=== PATIENT | female | born 1935 | race Caucasian/White ===

== ENCOUNTER 2019-05-06 04:29 | Inpatient (IN) | payer MEDICARE, OTHER ==
[~2019-05-06] VITALS: Ht 160 cm; Wt 50.3 kg
--- NOTE | 2019-05-06 04:42 | NUR ---
Patient brought in by rescue ambulance from home for fever. Per rescue patient's son called 911 due to patient having an elevated temp. Placed in bed 1A, gowned Attached to bedside monitor. Patient noted to be covered in feces, pt cleaned and linen changed. Awaiting MD byrnes.
[2019-05-06] MEDS ORDERED: DEXTROSE 50% 50 ML DISP.SYRIN IV ONE (05:00)
[2019-05-06] MEDS ORDERED: IV NORMAL SALINE 1000 ML BAG IV ONE (05:00)
[2019-05-06] MEDS ORDERED: DEXTROSE 50% 50 ML DISP.SYRIN ONE (05:02)
--- NOTE | 2019-05-06 05:03 | NUR ---
fingerstick BG noted at 50, Dr. Bailon made aware. New orders given and carried out.
[2019-05-06 05:10] LABS: BASOPHILS # (AUTO) 0.1 K/uL (0.0-8.0); BASOPHILS % (AUTO) 0.7 % (0.0-2.0); EOSINOPHILS # (AUTO) 0.1 K/uL (0.0-0.7); EOSINOPHILS % (AUTO) 0.6 % (0.0-7.0); HEMATOCRIT 32.9 % (31.2-41.9); HEMOGLOBIN 10.9 g/dL (10.9-14.3); LYMPHOCYTES % (AUTO) 19.7 % (20.5-51.5); MEAN CORPUSCULAR HEMOGLOBIN 28.7 uug (24.7-32.8); MEAN CORPUSCULAR HGB CONC 33 g/dL (32.3-35.6); MEAN CORPUSCULAR VOLUME 86.4 fL (75.5-95.3); MONOCYTES % (AUTO) 9.5 % (0.0-11.0); NEUTROPHILS # (AUTO) 7.1 K/uL (1.8-8.9); NEUTROPHILS % (AUTO) 69.5 % (38.5-71.5); PLATELET COUNT (AUTO) 470 K/uL (179-408); RED BLOOD CELL COUNT(AUTO) 3.81 MIL/uL (3.63-4.92); WHITE BLOOD COUNT (AUTO) 10.3 K/uL (3.8-11.8)
[2019-05-06 05:13] LABS: *CLARITY,URINE TURBID (CLEAR); *COLOR,URINE YELLOW (YELLOW)
[2019-05-06 05:14] LABS: *BILIRUBIN,URIN NEGATIVE (NEGATIVE); *BLOOD, URINE 3+ (NEGATIVE); *KETONES,URINE NEGATIVE (NEGATIVE); *UROBILINOGEN,URINE 0.2 E.U./dl (NORMAL); LEUKOCYTE ESTERASE ,URINE 3+ (NEGATIVE); NITRITE, URINE POSITIVE (NEGATIVE); UGLUCOSE NEGATIVE (NEGATIVE)
[2019-05-06 05:23] LABS: BACTERIA,URINE 3+ /HPF (NONE SEEN); CARBON DIOXIDE 19 mmol/L (21-32); CHLORIDE 109 mmol/L (98-107); CREATININE 1.3 mg/dL (0.6-1.3); GLUCOSE 59 mg/dL (74-106); MUCUS,URINE MANY /LPF (0-FEW); POTASSIUM 4.2 mmol/L (3.5-5.1); RBC,URINE TNTC /HPF (0-3); UREA NITROGEN, BLOOD 43 mg/dL (7-18); WBC,URINE TNTC /HPF (0-3)
--- NOTE | 2019-05-06 05:23 | NUR ---
Repeat fingerstick blood glucose 153, Dr. Bailon made aware.
[2019-05-06 05:29] LABS: ALANINE AMINOTRANSFERASE 16 U/L (14-59); ALKALINE PHOSPHATASE 82 U/L (50-136); ASPARTATE AMINOTRANSFERASE 15 U/L (15-37); BILIRUBIN,TOTAL 0.5 mg/dL (0.2-1.0); LIPASE 45 U/L (73-393); TOTAL PROTEIN, SERUM 9.1 g/dL (6.4-8.2)
[2019-05-06 05:30] LABS: BILIRUBIN,DIRECT < 0.1 mg/dL (0.0-0.2)
[2019-05-06] MEDS ORDERED: CEFTRIAXONE 2 G in IV DEXTROSE 5% 100 ML IV ONE (05:30)
[2019-05-06] MEDS ORDERED: CEFTRIAXONE /D5W 50ML IVPB **ER PYXIS IV ONE (05:44)
--- NOTE | 2019-05-06 06:07 | NUR ---
attempted to call report to telemetry, per unit, Jax will call back
[2019-05-06] MEDS ORDERED: HYDROCODONE/APAP 5-325MG TABLET PO PRN (06:15)
[2019-05-06] MEDS ORDERED: Z GUARD REMEDY PASTE 57 GM TUBE TOP PRN (06:15)
[2019-05-06] MEDS ORDERED: MAGNESIUM HYDROXIDE 30 ML LIQUID UDC PO PRN (06:15)
[2019-05-06] MEDS ORDERED: ONDANSETRON 4 MG/2 ML VIAL IV PRN (06:15)
--- NOTE | 2019-05-06 06:28 | NUR ---
SBAR report given to
--- NOTE | 2019-05-06 06:55 | NUR ---
rocephin ended at this time. Patient tolerated well, no adverse reactions noted.
--- NOTE | 2019-05-06 07:30 | NUR ---
RECEIVED PT FROM MARIAN RN. PT HAS JUST GOTTEN TO THE UNIT FROM ER NEW ADMIT. NO ACUTE DISTRESS NOTED. NO SOB NOTED. MACDONALD CATHETER FLOWING YELLOW URINE WITH LARGE AMOUNT OF SEDIMENT. PT SOMEWHAT COMBATIVE. BED LOCKED AND IN LOW POSITION. WILL CONTINUE TO MONITOR FOR SAFETY AND COMFORT.
[2019-05-06] MEDS ORDERED: OXYBUTYNIN CHLORIDE 5 MG TABLET PO SCH (09:00)
[2019-05-06] MEDS ORDERED: Medication Not On Formulary EA (Rosuvastatin Calcium (Crestor) 5 MG) PO SCH (09:00)
[2019-05-06] MEDS ORDERED: LOSARTAN POTASSIUM 50 MG TABLET PO SCH (09:00)
[2019-05-06] MEDS: METOPROLOL SUCCINATE XL 50 MG TAB.SR.24H PO SCH (09:14)
[2019-05-06] MEDS: AMLODIPINE 10 MG TABLET PO SCH (09:14)
[2019-05-06] MEDS: ASPIRIN 81 MG TAB.CHEW PO SCH (09:14)
[2019-05-06 11:46] VITALS: BP 121/59
--- NOTE | 2019-05-06 12:00 | NUR ---
PT'S DIET HAS BEEN UPDATED TO PUREED. NO ACUTE DISTRESS OR SOB NOTED. PT'S LOWER EXTREMITIES ARE CROSSED AND CONTRACTED. PT HAS AN ABRASION ON HER SACRAL AREA(MEPILEX APPLIED TO SACRAL AREA). ABRASION ON L ARM (MEPILEX APPLIED, PT KEEPS REMOVING) AND SCABS ON HER R FOOT. PICS TAKEN. PT HAS IV ACCESS ON L AC 20 GAUGE, FLUSHED AND PATENT COVERED. WILL CONTINUE TO MONITOR.
[2019-05-06 14:01] LABS: *CLARITY,URINE CLOUDY (CLEAR); *COLOR,URINE YELLOW (YELLOW)
[2019-05-06 14:02] LABS: *BILIRUBIN,URIN NEG (NEGATIVE); *BLOOD, URINE 1+ (NEGATIVE); *KETONES,URINE 2+ (NEGATIVE); *UROBILINOGEN,URINE 0.2 E.U./dl (NORMAL); PH,URINE 8.5 (5.0-8.0); UGLUCOSE NEG (NEGATIVE)
[2019-05-06 14:03] LABS: BACTERIA,URINE MODERATE /HPF (NONE SEEN); LEUKOCYTE ESTERASE ,URINE 2+ (NEGATIVE); NITRITE, URINE POSITIVE (NEGATIVE); WBC,URINE TNTC /HPF (0-3)
[2019-05-06 14:04] LABS: SQUAMOUS EPITHELIAL CELL,UR FEW /HPF (NONE SEEN)
[2019-05-06 15:03] LABS: *CREATININE,URINE 37.3 mg/dL (30-125)
[2019-05-06 16:00] VITALS: BP 124/66
[2019-05-06 16:12] LABS: *URINE TOTAL PROTEIN RANDOM > 1000.0 mg/dL (<150/24HR)
--- NOTE | 2019-05-06 18:00 | NUR ---
PT RESTING COMFORTABLY IN BED. NO ACUTE DISTRESS NOTED. URINE YELLOW WITH SEDIMENTS AWARE. 2 D ECHO ORDERED. PT CONSUMED 75%+ OF HER DINNER. WILL GIVE REPORT ACCORDINGLY.
[2019-05-06 20:05] VITALS: BP 144/57
[2019-05-06] MEDS ORDERED: ATORVASTATIN 10 MG TABLET PO SCH (21:00)
[2019-05-07] MEDS: ACETAMINOPHEN 325 MG TABLET PO PRN ×2 (03:57→20:47)
[2019-05-07 04:55] VITALS: BP 125/56
[2019-05-07] MEDS: CEFTRIAXONE 1 G in IV DEXTROSE 5% 50 ML IV SCH (05:20)
[2019-05-07 06:25] LABS: BASOPHILS % (AUTO) 0.5 % (0.0-2.0); EOSINOPHILS # (AUTO) 0.1 K/uL (0.0-0.7); HEMATOCRIT 26.9 % (31.2-41.9); HEMOGLOBIN 8.8 g/dL (10.9-14.3); LYMPHOCYTES # (AUTO) 1.6 K/uL (20.0-40.0); LYMPHOCYTES % (AUTO) 18.9 % (20.5-51.5); MEAN CORPUSCULAR HEMOGLOBIN 28.9 uug (24.7-32.8); MEAN CORPUSCULAR HGB CONC 33 g/dL (32.3-35.6); MEAN CORPUSCULAR VOLUME 88.1 fL (75.5-95.3); MONOCYTES # (AUTO) 0.7 K/uL (2.0-10.0); MONOCYTES % (AUTO) 8.2 % (0.0-11.0); NEUTROPHILS # (AUTO) 5.8 K/uL (1.8-8.9); NEUTROPHILS % (AUTO) 71.4 % (38.5-71.5); PLATELET COUNT (AUTO) 356 K/uL (179-408); RED BLOOD CELL COUNT(AUTO) 3.06 MIL/uL (3.63-4.92); WHITE BLOOD COUNT (AUTO) 8.2 K/uL (3.8-11.8)
--- NOTE | 2019-05-07 07:04 | NUR ---
Lab called with a critical glucose value of 403. Asked to redraw the sample. POC glucose test is 351. Will lily the MD for further orders. A second sample was collected and sent to the lab.
[2019-05-07 07:26] LABS: ALANINE AMINOTRANSFERASE 13 U/L (14-59); ALKALINE PHOSPHATASE 55 U/L (50-136); ASPARTATE AMINOTRANSFERASE 9 U/L (15-37); BILIRUBIN,TOTAL 0.3 mg/dL (0.2-1.0); CARBON DIOXIDE 20 mmol/L (21-32); CHLORIDE 113 mmol/L (98-107); CREATINE KINASE, TOTAL 53 U/L (26-192); CREATININE 1.1 mg/dL (0.6-1.3); MAGNESIUM 2.1 mg/dL (1.8-2.4); PHOSPHOROUS 3.1 mg/dL (2.5-4.9); POTASSIUM 4.2 mmol/L (3.5-5.1); TOTAL PROTEIN, SERUM 7.4 g/dL (6.4-8.2); UREA NITROGEN, BLOOD 35 mg/dL (7-18)
[2019-05-07 07:33] LABS: GLUCOSE 411 mg/dL (74-106)
[2019-05-07 07:47] LABS: CHOLESTEROL 95 mg/dL (<200); HDL CHOLESTEROL 45 mg/dL (40-60)
--- NOTE | 2019-05-07 07:56 | NUR ---
Second sample shows glucose of 411. Dr León was paged again, waiting for response. Endorsed to day shift RN
--- NOTE | 2019-05-07 08:00 | NUR ---
RECEIVED PATIENT IN BED AWAKE CONFUSED AND DISORIENTED ALL NEEDS ANTICIPATED AND SATISFIED SHE IS ON ROOM AIR WITH NO SHORTNESS OF BREATH AT THIS TIME PATIENT HAS HYPERGLYCEMIA PER NOC RN AWAITING FOR DR MARIE TO PLACE IN ORDERS.TURNED AND REPOSITIONED WITH HEELS FLOATED MADE COMFORTABLE AND WILL CONTINUE TO OBSERVE.
[2019-05-07] MEDS ORDERED: DEXTROSE 50% 50 ML DISP.SYRIN IV PRN (09:00)
[2019-05-07] MEDS: BLOOD SUGAR DIAGNOSTIC 1 EACH STRIP VI SCH ×4 (09:00→20:47)
[2019-05-07] MEDS: ASPIRIN 81 MG TAB.CHEW PO SCH (09:04)
[2019-05-07] MEDS: METOPROLOL SUCCINATE XL 50 MG TAB.SR.24H PO SCH (09:04)
[2019-05-07] MEDS: AMLODIPINE 10 MG TABLET PO SCH (09:04)
--- NOTE | 2019-05-07 09:10 | NUR ---
DUE MEDICATIONS INCLUDING INSULIN GIVEN PER SLIDING SCALE PATIENT ALREADY ATE HER BREAKFAST WITH GOOD APPETITE ECHO PARTIALLY DONE PATIENT BECAME RESISTANT TOWARDS THE END OF THE TEST MADE COMFORTABLE ALERT TO SELF BUR INCOHERENT AT THIS TIME
[2019-05-07] MEDS: INSULIN REGULAR, HUMAN 300 UNIT/3 ML VIAL SQ PRN ×4 (09:11→20:50)
[2019-05-07 11:13] LABS: IRON, SERUM 10 ug/dL (50-175)
[2019-05-07] MEDS: LINAGLIPTIN 5 MG TABLET PO SCH (11:25)
[2019-05-07 12:00] VITALS: BP 135/54
[2019-05-07 13:27] LABS: TRIGLYCERIDES 60 MG/DL (30-150)
--- NOTE | 2019-05-07 14:44 | NUR ---
PATIENT SEEN AND EXAMINED BY FRANCIS RIVERA CHEMICALS FERMENTATION OPERATOR WITH NEW ORDERS AND NOTED.
[2019-05-07 16:17] VITALS: BP 113/50
[2019-05-07 18:24] LABS: *OCCULT BLOOD STOOL NEGATIVE (NEGATIVE)
[2019-05-07 19:42] VITALS: BP 112/39
--- NOTE | 2019-05-07 19:53 | NUR ---
RECEIVED PT IN BED, SLOUCHED OVER, REPOSITIONED. APPEARS TO BE STABLE AND COMFORTABLE, NO SIGNS OF PAIN OR DISCOMFORT. UNABLE TO VERBALIZE NEEDS. MACDONALD CATHETER DRAINING, TO DARK YELLOW/CLOUDY URINE. WILL ANTICIPATE NEEDS AND MONITOR FREQUENTLY.
[2019-05-07] MEDS: Z GUARD REMEDY PASTE 57 GM TUBE TOP SCH (20:47)
--- NOTE | 2019-05-08 03:44 | NUR ---
pt sleeping well at this time, slept intermittently throughout night. Turned and repositioned every 2 hours for comfort and skin breakdown prevention. Kept monitored hourly. Will continue to monitor.
[2019-05-08 04:42] VITALS: BP 143/61
[2019-05-08] MEDS: CEFTRIAXONE 1 G in IV DEXTROSE 5% 50 ML IV SCH (06:03)
[2019-05-08] MEDS: BLOOD SUGAR DIAGNOSTIC 1 EACH STRIP VI SCH ×4 (06:50→21:06)
[2019-05-08 07:35] LABS: EOSINOPHILS # (AUTO) 0.1 K/uL (0.0-0.7); LYMPHOCYTES # (AUTO) 1.3 K/uL (20.0-40.0); MONOCYTES # (AUTO) 0.4 K/uL (2.0-10.0); NEUTROPHILS # (AUTO) 5.3 K/uL (1.8-8.9); WHITE BLOOD COUNT (AUTO) 7.2 K/uL (3.8-11.8)
[2019-05-08 07:52] LABS: BASOPHILS % (AUTO) 0.6 % (0.0-2.0); EOSINOPHILS % (AUTO) 1.8 % (0.0-7.0); LYMPHOCYTES % (AUTO) 18.6 % (20.5-51.5); MEAN CORPUSCULAR HEMOGLOBIN 28.2 uug (24.7-32.8); MEAN CORPUSCULAR HGB CONC 32 g/dL (32.3-35.6); MEAN CORPUSCULAR VOLUME 87.6 fL (75.5-95.3); PLATELET COUNT (AUTO) 382 K/uL (179-408); RED BLOOD CELL COUNT(AUTO) 3.54 MIL/uL (3.63-4.92)
[2019-05-08 07:53] LABS: BILIRUBIN,TOTAL 0.3 mg/dL (0.2-1.0); MAGNESIUM 1.7 mg/dL (1.8-2.4); PHOSPHOROUS 3.3 mg/dL (2.5-4.9); POTASSIUM 4.7 mmol/L (3.5-5.1)
[2019-05-08] MEDS: INSULIN REGULAR, HUMAN 300 UNIT/3 ML VIAL SQ PRN ×4 (08:03→21:07)
[2019-05-08] MEDS: Z GUARD REMEDY PASTE 57 GM TUBE TOP SCH ×2 (09:00→21:03)
[2019-05-08] MEDS: ASPIRIN 81 MG TAB.CHEW PO SCH (09:07)
[2019-05-08] MEDS: AMLODIPINE 10 MG TABLET PO SCH (09:08)
[2019-05-08] MEDS: METOPROLOL SUCCINATE XL 50 MG TAB.SR.24H PO SCH (09:10)
[2019-05-08] MEDS: LINAGLIPTIN 5 MG TABLET PO SCH (09:10)
[2019-05-08] MEDS ORDERED: METOPROLOL SUCCINATE XL 50 MG TAB.SR.24H PO SCH (09:29)
[2019-05-08] MEDS: GLIMEPIRIDE 2 MG TABLET PO SCH ×2 (10:27→17:17)
[2019-05-08] MEDS: METOPROLOL TARTRATE 25 MG TABLET PO SCH ×2 (10:28→21:01)
[2019-05-08 11:30] VITALS: BP 132/52
--- NOTE | 2019-05-08 14:10 | NUR ---
WOUND CARE CONSULT: PT PRESENTS WITH SACRAL INTACT DEEP TISSUE INJURY WITH SURROUNDING SCARRING WHICH EXTENDS TO BILATERAL BUTTOCKS, PRESENT ON ADMISSION. RECOMMEND SURGICAL CONSULT. DR RAMIRES NOTIFIED. PT IS COMBATIVE AT TIMES AND IS INCONTINENT OF STOOL. PT TENDS TO CROSS HER LEGS. RECOMMENDATIONS MADE FOR SKIN PROTECTION. DISCUSSED WITH NURSING STAFF. WILL SEE PRN. FLOWERS IN AGREEMENT WITH PLAN OF CARE. Addendum: 05/08/19 at 1412 by RADHA MCKEON RN Amended: Links added.
[2019-05-08] MEDS: MAGNESIUM SULFATE/D5W 100 ML IV SCH ×2 (15:17→17:27)
[2019-05-08 15:33] VITALS: BP 119/47
[2019-05-08 20:38] VITALS: BP 122/59
[2019-05-08] MEDS: CEphaleXIN 500 MG CAPSULE PO SCH (21:00)
--- NOTE | 2019-05-08 23:13 | NUR ---
hands off report received from Roxann. Pt in no acute distress, safety and comfort provided. will continue to monitor.
[2019-05-09 05:46] VITALS: BP 125/60
[2019-05-09] MEDS: CEphaleXIN 500 MG CAPSULE PO SCH ×2 (06:13→13:23)
--- NOTE | 2019-05-09 06:29 | NUR ---
PT SLEPT INTERMITTENTLY. PT IN NO ACUTE DISTRESS. PRESCRIBED MEDICATION GIVEN AND PT TOLERATED IT WELL. PT HAD 1 BOWEL MOVEMENT. SAFETY AND COMFORT PROVIDED. ALL NEEDS ARE MET. WILL ENDORSE TO INCOMING NURSE FOR CONTINUITY OF CARE.
[2019-05-09] MEDS: BLOOD SUGAR DIAGNOSTIC 1 EACH STRIP VI SCH ×3 (06:32→16:30)
[2019-05-09 07:07] LABS: CREATININE 0.8 mg/dL (0.6-1.3); MAGNESIUM 2.2 mg/dL (1.8-2.4); PHOSPHOROUS 3.4 mg/dL (2.5-4.9); POTASSIUM 4.7 mmol/L (3.5-5.1)
[2019-05-09 07:26] LABS: BASOPHILS # (AUTO) 0.1 K/uL (0.0-8.0); BASOPHILS % (AUTO) 0.8 % (0.0-2.0); EOSINOPHILS # (AUTO) 0.2 K/uL (0.0-0.7); HEMATOCRIT 28.5 % (31.2-41.9); HEMOGLOBIN 9.5 g/dL (10.9-14.3); LYMPHOCYTES % (AUTO) 22.8 % (20.5-51.5); MEAN CORPUSCULAR HEMOGLOBIN 28.9 uug (24.7-32.8); MEAN CORPUSCULAR HGB CONC 33 g/dL (32.3-35.6); MEAN CORPUSCULAR VOLUME 86.8 fL (75.5-95.3); MONOCYTES # (AUTO) 0.4 K/uL (2.0-10.0); MONOCYTES % (AUTO) 5.1 % (0.0-11.0); NEUTROPHILS # (AUTO) 6.1 K/uL (1.8-8.9); NEUTROPHILS % (AUTO) 69.3 % (38.5-71.5); PLATELET COUNT (AUTO) 427 K/uL (179-408); RED BLOOD CELL COUNT(AUTO) 3.29 MIL/uL (3.63-4.92); WHITE BLOOD COUNT (AUTO) 8.8 K/uL (3.8-11.8)
[2019-05-09] MEDS: Z GUARD REMEDY PASTE 57 GM TUBE TOP SCH (09:00)
[2019-05-09] MEDS: GLIMEPIRIDE 2 MG TABLET PO SCH ×2 (09:43→18:06)
[2019-05-09] MEDS: METOPROLOL TARTRATE 25 MG TABLET PO SCH (09:44)
[2019-05-09] MEDS: ASPIRIN 81 MG TAB.CHEW PO SCH (09:44)
[2019-05-09] MEDS: AMLODIPINE 10 MG TABLET PO SCH (09:44)
[2019-05-09] MEDS: LINAGLIPTIN 5 MG TABLET PO SCH (09:45)
[2019-05-09] MEDS: INSULIN REGULAR, HUMAN 300 UNIT/3 ML VIAL SQ PRN ×2 (09:48→11:43)
[2019-05-09 11:31] VITALS: BP 128/60
[2019-05-09 12:06] LABS: A/G RATIO 0.6 (0.7-1.7); ALBUMIN 2.5 g/dL (2.9-4.4); ALPHA-1-GLOBULIN 0.3 g/dL (0.0-0.4); BETA GLOBULIN 0.9 g/dL (0.7-1.3); GAMMA GLOBULIN 1.9 g/dL (0.4-1.8); GLOBULIN, TOTAL 4.2 g/dL (2.2-3.9); M-SPIKE Not Observed g/dL (Not Observed)
[2019-05-09 15:36] VITALS: BP 129/51
--- NOTE | 2019-05-09 18:55 | NUR ---
Patient bathed prior to discharge. IV d/c'd. Waiting ambulance for transport home
== END 2019-05-09 19:20 | disposition home health service (06) | DRG 871 ==
LOC: ER 04:39 → TELE3 06:16 → MEDSURG3 11:55
PROVIDERS: ADMIT Family Medicine; ATTEND Internal Medicine
DX: A41.9 Sepsis, unspecified organism (principal); N17.0 Acute kidney failure with tubular necrosis; G92 Toxic encephalopathy; N12 Tubulo-interstitial nephritis, not specified as acute or chronic; D68.59 Other primary thrombophilia; E44.0 Moderate protein-calorie malnutrition; N32.81 Overactive bladder; E78.5 Hyperlipidemia, unspecified; E11.649 Type 2 diabetes mellitus with hypoglycemia without coma; D63.8 Anemia in other chronic diseases classified elsewhere; B96.4 Proteus (mirabilis) (morganii) as the cause of diseases classified elsewhere; E86.0 Dehydration; I25.10 Atherosclerotic heart disease of native coronary artery without angina pectoris; K59.00 Constipation, unspecified; N31.9 Neuromuscular dysfunction of bladder, unspecified; E11.69 Type 2 diabetes mellitus with other specified complication; E11.65 Type 2 diabetes mellitus with hyperglycemia; Z79.84 Long term (current) use of oral hypoglycemic drugs; Z74.09 Other reduced mobility; Z79.82 Long term (current) use of aspirin; Z90.49 Acquired absence of other specified parts of digestive tract; Z98.42 Cataract extraction status, left eye; Z98.41 Cataract extraction status, right eye; I15.2 Hypertension secondary to endocrine disorders; F03.90 Unspecified dementia, unspecified severity, without behavioral disturbance, psychotic disturbance, mood disturbance, and anxiety; M19.90 Unspecified osteoarthritis, unspecified site; M54.30 Sciatica, unspecified side; I35.8 Other nonrheumatic aortic valve disorders
CPT/HCPCS: 36415; 70030-TC; 71045; 82378; 83550; 83605; 83690; 83735; 83970; 84100; 84155; 84156; 84165; 84300; 85025; 85730; 87040; 87077; 87086; 87400; 93005; 93307; A4663; C1758; G0378; J0696; J1815; J3475; J3490; J7030; J7040; J7060

== ENCOUNTER 2019-11-06 17:14 | Inpatient (IN) | payer MEDICARE, OTHER ==
[~2019-11-06] VITALS: Ht 160 cm; Wt 44.5 kg
[~2019-11-06 17:14] MED LIST: AMLO10TA4 PO; ASPI81TA31 PO; CEPH500C2 PO; GLIM2TAB PO; LINA5TAB PO; LOSA100T3 PO; METO50TA7 PO; ROSU5TAB PO
[2019-11-06] MEDS ORDERED: [UNRECOGNIZED DRUG - OTHER] SQ (18:03)
[2019-11-06] MEDS ORDERED: OLME1TAB22 PO (18:03)
[2019-11-06] MEDS ORDERED: VALS1TAB8 PO (18:03)
[2019-11-06] MEDS ORDERED: INSU100V7 SQ (18:03)
[2019-11-06] MEDS ORDERED: BENA20TA9 PO (18:03)
[2019-11-06] MEDS ORDERED: METF-440 PO (18:03)
[2019-11-06] MEDS ORDERED: SIMV10TA98 PO (18:03)
[2019-11-06 18:36] LABS: CREATININE 1.3 mg/dL (0.6-1.3); POTASSIUM 4.7 mmol/L (3.5-5.1)
[2019-11-06 18:45] LABS: BILIRUBIN,DIRECT 0.1 mg/dL (0.0-0.2); BILIRUBIN,TOTAL 0.2 mg/dL (0.2-1.0); TOTAL PROTEIN, SERUM 7.9 g/dL (6.4-8.2)
[2019-11-06 19:53] LABS: BASOPHILS # (AUTO) 0.1 K/uL (0.0-8.0); BASOPHILS % (AUTO) 0.9 % (0.0-2.0); EOSINOPHILS # (AUTO) 0.1 K/uL (0.0-0.7); EOSINOPHILS % (AUTO) 1.3 % (0.0-7.0); HEMOGLOBIN 11.9 g/dL (10.9-14.3); LYMPHOCYTES # (AUTO) 1.3 K/uL (20.0-40.0); LYMPHOCYTES % (AUTO) 22.8 % (20.5-51.5); MEAN CORPUSCULAR HEMOGLOBIN 29.1 uug (24.7-32.8); MEAN CORPUSCULAR HGB CONC 33 g/dL (32.3-35.6); MEAN CORPUSCULAR VOLUME 87.8 fL (75.5-95.3); MONOCYTES # (AUTO) 0.6 K/uL (2.0-10.0); MONOCYTES % (AUTO) 11.2 % (0.0-11.0); NEUTROPHILS # (AUTO) 3.6 K/uL (1.8-8.9); NEUTROPHILS % (AUTO) 63.8 % (38.5-71.5); PLATELET COUNT (AUTO) 304 K/uL (179-408); WHITE BLOOD COUNT (AUTO) 5.6 K/uL (3.8-11.8)
[2019-11-06 19:57] LABS: *BILIRUBIN,URIN NEGATIVE (NEGATIVE); *BLOOD, URINE 1+ (NEGATIVE); *CLARITY,URINE CLOUDY (CLEAR); *COLOR,URINE YELLOW (YELLOW); *KETONES,URINE NEGATIVE (NEGATIVE); *UROBILINOGEN,URINE 0.2 E.U./dl (NORMAL); LEUKOCYTE ESTERASE ,URINE 3+ (NEGATIVE); NITRITE, URINE POSITIVE (NEGATIVE); PH,URINE 8.5 (5.0-8.0); UGLUCOSE NEGATIVE (NEGATIVE)
[2019-11-06] MEDS ORDERED: CEFTRIAXONE 1 G in IV DEXTROSE 5% 50 ML IV ONE (20:45)
[2019-11-06] MEDS ORDERED: CEFTRIAXONE /D5W 50ML IVPB **ER PYXIS IV ONE (20:50)
[2019-11-06] MEDS ORDERED: ACETAMINOPHEN 325 MG TABLET PO PRN (21:45)
[2019-11-06] MEDS ORDERED: ONDANSETRON 4 MG/2 ML VIAL IV PRN (21:45)
[2019-11-06] MEDS ORDERED: HYDROCODONE/APAP 5-325MG TABLET PO PRN (21:45)
[2019-11-06 22:27] LABS: BACTERIA,URINE MANY /HPF (NONE SEEN); SQUAMOUS EPITHELIAL CELL,UR FEW /HPF (NONE SEEN); TRIPLE PHOSPHATE CRYSTAL,UR MANY /HPF (NONE SEEN); WBC,URINE 20-50 /HPF (0-3)
[2019-11-07 01:15] VITALS: BP 146/71
[2019-11-07] MEDS: IV 1/2NS 1000 ML 1,000 ML IV PRN (04:37)
[2019-11-07 04:38] VITALS: BP 139/73
[2019-11-07 04:42] VITALS: BP 133/60
[2019-11-07 08:40] LABS: BILIRUBIN,TOTAL 0.3 mg/dL (0.2-1.0); CREATININE 1.2 mg/dL (0.6-1.3); MAGNESIUM 1.5 mg/dL (1.8-2.4); PHOSPHOROUS 3.5 mg/dL (2.5-4.9); POTASSIUM 4.3 mmol/L (3.5-5.1); TOTAL PROTEIN, SERUM 7.6 g/dL (6.4-8.2)
[2019-11-07 08:49] LABS: BASOPHILS % (AUTO) 0.6 % (0.0-2.0); EOSINOPHILS % (AUTO) 0.6 % (0.0-7.0); HEMATOCRIT 35.5 % (31.2-41.9); HEMOGLOBIN 11.6 g/dL (10.9-14.3); LYMPHOCYTES % (AUTO) 28.7 % (20.5-51.5); MEAN CORPUSCULAR HEMOGLOBIN 29.1 uug (24.7-32.8); MEAN CORPUSCULAR HGB CONC 33 g/dL (32.3-35.6); MEAN CORPUSCULAR VOLUME 89.3 fL (75.5-95.3); MONOCYTES # (AUTO) 1.1 K/uL (2.0-10.0); MONOCYTES % (AUTO) 15.4 % (0.0-11.0); NEUTROPHILS # (AUTO) 3.8 K/uL (1.8-8.9); NEUTROPHILS % (AUTO) 54.7 % (38.5-71.5); PLATELET COUNT (AUTO) 267 K/uL (179-408); RED BLOOD CELL COUNT(AUTO) 3.98 MIL/uL (3.63-4.92)
[2019-11-07] MEDS ORDERED: CEFTRIAXONE 1 G in IV DEXTROSE 5% 50 ML IV SCH ×2 (09:00→21:00)
[2019-11-07 09:09] LABS: THYROID STIMULATING HORMONE 0.787 mIU/mL (0.358-3.740)
[2019-11-07] MEDS: METFORMIN HCL 500 MG TABLET PO SCH ×2 (09:19→17:06)
[2019-11-07] MEDS: ASPIRIN 81 MG TAB.CHEW PO SCH (09:19)
[2019-11-07] MEDS: PANTOPRAZOLE SODIUM 40 MG TABLET.DR PO SCH (09:19)
[2019-11-07] MEDS: BENAZEPRIL HCL 20 MG TABLET PO SCH (09:22)
[2019-11-07] MEDS: MAGNESIUM SULFATE/D5W 100 ML IV SCH ×2 (10:34→11:23)
[2019-11-07 11:43] VITALS: BP 130/62
[2019-11-07] MEDS: CIPROFLOXACIN IV 200 MG in PREMIXED 1 EACH IV SCH ×2 (11:51→20:32)
[2019-11-07 12:02] LABS: LYMPHOCYTES % (MANUAL) 29 % (20-40); MONOCYTES % (MANUAL) 17 % (2-10); NEUTROPHILS % (MANUAL) 54 % (42-75)
[2019-11-07] MEDS: METRONIDAZOLE 500 MG/NS 100ML 500 MG in PREMIXED 1 EACH IV SCH ×2 (14:23→22:54)
[2019-11-07 15:27] VITALS: BP 122/54
[2019-11-07] MEDS: GLUCERNA SHAKE VANILLA 237 ML CAN PO SCH (17:06)
[2019-11-07 20:03] VITALS: BP 98/38
[2019-11-07] MEDS: SIMVASTATIN 10 MG TABLET PO SCH (20:32)
[2019-11-08] MEDS: IV 1/2NS 1000 ML 1,000 ML IV PRN (00:53)
[2019-11-08 04:09] VITALS: BP 116/57
[2019-11-08] MEDS: METRONIDAZOLE 500 MG/NS 100ML 500 MG in PREMIXED 1 EACH IV SCH ×3 (05:09→22:05)
[2019-11-08] MEDS: PANTOPRAZOLE SODIUM 40 MG TABLET.DR PO SCH (06:26)
[2019-11-08] MEDS: ASPIRIN 81 MG TAB.CHEW PO SCH (08:26)
[2019-11-08] MEDS: GLUCERNA SHAKE VANILLA 237 ML CAN PO SCH ×3 (08:26→17:28)
[2019-11-08] MEDS: METFORMIN HCL 500 MG TABLET PO SCH ×2 (08:26→17:26)
[2019-11-08] MEDS: BENAZEPRIL HCL 20 MG TABLET PO SCH (08:29)
[2019-11-08] MEDS: CIPROFLOXACIN IV 200 MG in PREMIXED 1 EACH IV SCH ×2 (08:29→20:03)
[2019-11-08 11:13] VITALS: BP 110/45
[2019-11-08 11:26] LABS: BASOPHILS % (AUTO) 0.6 % (0.0-2.0); EOSINOPHILS % (AUTO) 1.4 % (0.0-7.0); HEMATOCRIT 31.5 % (31.2-41.9); HEMOGLOBIN 10.3 g/dL (10.9-14.3); LYMPHOCYTES # (AUTO) 1.3 K/uL (20.0-40.0); LYMPHOCYTES % (AUTO) 35.8 % (20.5-51.5); MEAN CORPUSCULAR HEMOGLOBIN 28.8 uug (24.7-32.8); MEAN CORPUSCULAR HGB CONC 33 g/dL (32.3-35.6); MEAN CORPUSCULAR VOLUME 87.9 fL (75.5-95.3); MONOCYTES # (AUTO) 0.5 K/uL (2.0-10.0); MONOCYTES % (AUTO) 12.8 % (0.0-11.0); NEUTROPHILS # (AUTO) 1.8 K/uL (1.8-8.9); NEUTROPHILS % (AUTO) 49.4 % (38.5-71.5); PLATELET COUNT (AUTO) 261 K/uL (179-408); RED BLOOD CELL COUNT(AUTO) 3.59 MIL/uL (3.63-4.92); WHITE BLOOD COUNT (AUTO) 3.6 K/uL (3.8-11.8)
[2019-11-08 11:33] LABS: MAGNESIUM 1.7 mg/dL (1.8-2.4); PHOSPHOROUS 3.5 mg/dL (2.5-4.9); POTASSIUM 3.8 mmol/L (3.5-5.1)
[2019-11-08] MEDS: ENOXAPARIN SODIUM 30 MG/0.3 ML DISP.SYRIN SUBCUT SCH (12:22)
[2019-11-08] MEDS ORDERED: LORAZEPAM 0.5 MG TABLET PO PRN (12:45)
[2019-11-08] MEDS ORDERED: QUETIAPINE FUMARATE 25 MG TABLET PO PRN (12:45)
[2019-11-08 16:13] VITALS: BP 126/49
[2019-11-08] MEDS: SIMVASTATIN 10 MG TABLET PO SCH (20:03)
[2019-11-08 20:23] VITALS: BP 119/68
[2019-11-09] MEDS: IV 1/2NS 1000 ML 1,000 ML IV PRN (00:43)
[2019-11-09 04:03] VITALS: BP 133/59
[2019-11-09] MEDS: METRONIDAZOLE 500 MG/NS 100ML 500 MG in PREMIXED 1 EACH IV SCH ×2 (05:07→13:11)
[2019-11-09] MEDS: PANTOPRAZOLE SODIUM 40 MG TABLET.DR PO SCH (06:03)
[2019-11-09 07:04] LABS: BASOPHILS % (AUTO) 0.3 % (0.0-2.0); EOSINOPHILS # (AUTO) 0.1 K/uL (0.0-0.7); EOSINOPHILS % (AUTO) 2.1 % (0.0-7.0); HEMATOCRIT 29.1 % (31.2-41.9); HEMOGLOBIN 9.7 g/dL (10.9-14.3); LYMPHOCYTES # (AUTO) 1.1 K/uL (20.0-40.0); LYMPHOCYTES % (AUTO) 27.3 % (20.5-51.5); MEAN CORPUSCULAR HEMOGLOBIN 28.9 uug (24.7-32.8); MEAN CORPUSCULAR HGB CONC 34 g/dL (32.3-35.6); MEAN CORPUSCULAR VOLUME 86.4 fL (75.5-95.3); MONOCYTES # (AUTO) 0.4 K/uL (2.0-10.0); MONOCYTES % (AUTO) 9.4 % (0.0-11.0); NEUTROPHILS # (AUTO) 2.4 K/uL (1.8-8.9); NEUTROPHILS % (AUTO) 60.9 % (38.5-71.5); PLATELET COUNT (AUTO) 247 K/uL (179-408); RED BLOOD CELL COUNT(AUTO) 3.36 MIL/uL (3.63-4.92); WHITE BLOOD COUNT (AUTO) 3.9 K/uL (3.8-11.8)
[2019-11-09 07:11] LABS: MAGNESIUM 1.5 mg/dL (1.8-2.4); PHOSPHOROUS 2.7 mg/dL (2.5-4.9); POTASSIUM 4.1 mmol/L (3.5-5.1)
[2019-11-09] MEDS: METFORMIN HCL 500 MG TABLET PO SCH ×2 (08:00→16:03)
[2019-11-09] MEDS: ASPIRIN 81 MG TAB.CHEW PO SCH (08:00)
[2019-11-09] MEDS: BENAZEPRIL HCL 20 MG TABLET PO SCH (08:00)
[2019-11-09] MEDS: ENOXAPARIN SODIUM 30 MG/0.3 ML DISP.SYRIN SUBCUT SCH (08:01)
[2019-11-09] MEDS: CIPROFLOXACIN IV 200 MG in PREMIXED 1 EACH IV SCH (08:02)
[2019-11-09] MEDS: GLUCERNA SHAKE VANILLA 237 ML CAN PO SCH ×3 (08:17→16:04)
[2019-11-09] MEDS: MAGNESIUM SULFATE/D5W 100 ML IV SCH ×2 (09:50→10:22)
[2019-11-09 11:22] VITALS: BP 98/40
[2019-11-09 14:59] VITALS: BP 122/55
[2019-11-09 15:16] VITALS: BP 129/55
[2019-11-09] MEDS ORDERED: METR-147 PO (15:26)
[2019-11-09] MEDS ORDERED: CIPR250T4 PO (15:26)
[2019-11-09] MEDS ORDERED: CIPROFLOXACIN HCL 250 MG TABLET PO SCH (21:00)
[2019-11-09] MEDS ORDERED: METRONIDAZOLE 500 MG TABLET PO SCH (22:00)
== END 2019-11-09 16:40 | disposition home health service (06) | DRG 871 ==
LOC: ER 17:16 → MEDSURG3 23:50
PROVIDERS: ADMIT Internal Medicine; ATTEND Registered Nurse
DX: A41.9 Sepsis, unspecified organism (principal); G92 Toxic encephalopathy; N17.0 Acute kidney failure with tubular necrosis; D68.69 Other thrombophilia; F03.91 Unspecified dementia, unspecified severity, with behavioral disturbance; N13.6 Pyonephrosis; Z68.1 Body mass index [BMI] 19.9 or less, adult; Z79.4 Long term (current) use of insulin; E78.5 Hyperlipidemia, unspecified; I70.0 Atherosclerosis of aorta; D64.9 Anemia, unspecified; R62.7 Adult failure to thrive; M19.90 Unspecified osteoarthritis, unspecified site; I11.9 Hypertensive heart disease without heart failure; K52.89 Other specified noninfective gastroenteritis and colitis; Z79.84 Long term (current) use of oral hypoglycemic drugs; K59.09 Other constipation; N28.1 Cyst of kidney, acquired; N32.0 Bladder-neck obstruction; E11.65 Type 2 diabetes mellitus with hyperglycemia; M54.30 Sciatica, unspecified side; Z79.82 Long term (current) use of aspirin; Z87.440 Personal history of urinary (tract) infections; Z90.49 Acquired absence of other specified parts of digestive tract; R40.2363 Coma scale, best motor response, obeys commands, at hospital admission; R40.2143 Coma scale, eyes open, spontaneous, at hospital admission; R40.2243 Coma scale, best verbal response, confused conversation, at hospital admission
CPT/HCPCS: 36415; 70030-TC; 70450; 71045; 83605; 83735; 84100; 84443; 85025; 87040; 87086; 93005; A4663; G0378; J0696; J1650; J3475; J3490; J7060

== ENCOUNTER 2019-11-11 17:53 | Inpatient (IN) | payer MEDICARE, OTHER ==
[~2019-11-11] VITALS: Ht 157.5 cm; Wt 52.6 kg
[~2019-11-11 17:53] MED LIST changes: -AMLO10TA4 PO; +BENA20TA9 PO; -CEPH500C2 PO; +CIPR250T4 PO; -GLIM2TAB PO; +INSU100V7 SQ; -LOSA100T3 PO; +METF-440 PO; -METO50TA7 PO; +METR-147 PO; -ROSU5TAB PO; +SIMV10TA98 PO; +[UNRECOGNIZED DRUG - OTHER] SQ
--- NOTE | 2019-11-11 18:04 | NUR ---
Per yarn salvager from [facility] unit# [id number], patient's son is coming with list of home medicine.
[2019-11-11] MEDS ORDERED: GLYB2.5T4 PO (18:38)
[2019-11-11] MEDS ORDERED: OXYB5TAB16 PO (18:38)
[2019-11-11] MEDS ORDERED: LOSA100T31 PO (18:38)
[2019-11-11] MEDS ORDERED: ROSU5TAB13 PO (18:39)
[2019-11-11] MEDS ORDERED: AMLO10TA7 PO (18:39)
[2019-11-11] MEDS ORDERED: METO-358 (18:43)
[2019-11-11] MEDS ORDERED: IV NORMAL SALINE 1000 ML BAG IV ONE (18:45)
[2019-11-11 19:10] LABS: EOSINOPHILS # (AUTO) 0.1 K/uL (0.0-0.7); EOSINOPHILS % (AUTO) 3.8 % (0.0-7.0); HEMOGLOBIN 10.4 g/dL (10.9-14.3); LYMPHOCYTES # (AUTO) 1.3 K/uL (20.0-40.0); LYMPHOCYTES % (AUTO) 41.5 % (20.5-51.5); MEAN CORPUSCULAR HEMOGLOBIN 28.4 uug (24.7-32.8); MEAN CORPUSCULAR HGB CONC 33 g/dL (32.3-35.6); MEAN CORPUSCULAR VOLUME 87.2 fL (75.5-95.3); MONOCYTES # (AUTO) 0.2 K/uL (2.0-10.0); MONOCYTES % (AUTO) 8.1 % (0.0-11.0); NEUTROPHILS # (AUTO) 1.4 K/uL (1.8-8.9); NEUTROPHILS % (AUTO) 45.6 % (38.5-71.5); PLATELET COUNT (AUTO) 267 K/uL (179-408); RED BLOOD CELL COUNT(AUTO) 3.67 MIL/uL (3.63-4.92)
--- NOTE | 2019-11-11 19:11 | NUR ---
Full SBAR report given to ОЛЬГА López.
[2019-11-11 19:16] LABS: CREATININE 0.8 mg/dL (0.6-1.3); POTASSIUM 3.9 mmol/L (3.5-5.1)
[2019-11-11 19:29] LABS: BILIRUBIN,DIRECT 0.1 mg/dL (0.0-0.2); BILIRUBIN,TOTAL 0.3 mg/dL (0.2-1.0); TOTAL PROTEIN, SERUM 6.6 g/dL (6.4-8.2)
[2019-11-11 19:45] LABS: *BILIRUBIN,URIN NEGATIVE (NEGATIVE); *BLOOD, URINE 2+ (NEGATIVE); *CLARITY,URINE CLOUDY (CLEAR); *COLOR,URINE YELLOW (YELLOW); *KETONES,URINE TRACE (NEGATIVE); *UROBILINOGEN,URINE 0.2 E.U./dl (NORMAL); LEUKOCYTE ESTERASE ,URINE 3+ (NEGATIVE); NITRITE, URINE POSITIVE (NEGATIVE); PH,URINE 5.5 (5.0-8.0); UGLUCOSE NEGATIVE (NEGATIVE)
--- NOTE | 2019-11-11 19:46 | NUR ---
urine sent to lab at this time, [address] in right AC at this time, Normal saline IV fluids inprogress at this time
[2019-11-11 20:29] LABS: BACTERIA,URINE MANY /HPF (NONE SEEN); RBC,URINE 20-50 /HPF (0-3); SQUAMOUS EPITHELIAL CELL,UR FEW /HPF (NONE SEEN); WBC,URINE 20-50 /HPF (0-3)
[2019-11-11] MEDS ORDERED: CEFTRIAXONE /D5W 50ML IVPB **ER PYXIS IV ONE (20:30)
[2019-11-11] MEDS ORDERED: CEFTRIAXONE 2 G in IV DEXTROSE 5% 100 ML IV ONE (20:30)
[2019-11-11] MEDS ORDERED: ACETAMINOPHEN ES 500 MG TABLET PO ONE (20:30)
[2019-11-11] MEDS ORDERED: ACETAMINOPHEN ES 500 MG TABLET ONE (20:30)
[2019-11-11] MEDS ORDERED: MAGNESIUM HYDROXIDE 30 ML LIQUID UDC PO PRN (20:45)
[2019-11-11] MEDS ORDERED: ONDANSETRON 4 MG/2 ML VIAL IV PRN (20:45)
[2019-11-11] MEDS ORDERED: Z GUARD REMEDY PASTE 57 GM TUBE TOP PRN (20:45)
[2019-11-11] MEDS ORDERED: ACETAMINOPHEN 325 MG TABLET PO PRN (20:45)
--- NOTE | 2019-11-11 21:05 | NUR ---
Covid swab sent to lab at this time
--- NOTE | 2019-11-11 21:52 | NUR ---
civil technician noted in room at this time
[2019-11-11] MEDS ORDERED: PIPERACILLIN SODIUM/TAZOBACTAM 3.375 G in IV DEXTROSE 5% 50 ML IV SCH (22:00)
--- NOTE | 2019-11-11 23:03 | NUR ---
900 ml of Tea colored urine emptied from infante bag at this time, patient had samll BM at this time
--- NOTE | 2019-11-12 00:14 | NUR ---
Pt. admitted to [facility] , under care of Dr. Martinez Belongs List completed sent with patient, report given to Mani
[2019-11-12 00:19] VITALS: BP 156/66
--- NOTE | 2019-11-12 00:20 | NUR ---
Received patient awake but confused. Patient shows no signs or symptoms of distress at this time. No fever noted at this time. Grubbs draining to gravity and is patent. Safety measures in place. Admitting orders received and will be carried out. Will continue to monitor patient.
[2019-11-12] MEDS ORDERED: PIPERACILLIN SODIUM/TAZOBACTAM 3.375 G in IV DEXTROSE 5% 50 ML IV ONE (00:30)
[2019-11-12] MEDS: IV NS 1000 ML 1,000 ML IV PRN ×2 (00:31→20:56)
[2019-11-12] MEDS ORDERED: PIPERACILLIN/TAZOBACTAM/D5W 50 ML IV ONE (00:54)
[2019-11-12 05:36] VITALS: BP 130/60
[2019-11-12] MEDS: PANTOPRAZOLE SODIUM 40 MG TABLET.DR PO SCH (06:22)
[2019-11-12] MEDS: PIPERACILLIN SODIUM/TAZOBACTAM 3.37 G in IV DEXTROSE 5% 100 ML IV SCH ×3 (06:48→21:01)
[2019-11-12] MEDS: METFORMIN HCL 500 MG TABLET PO SCH ×2 (07:56→16:28)
[2019-11-12] MEDS: METRONIDAZOLE 500 MG TABLET PO SCH ×2 (07:56→16:28)
[2019-11-12] MEDS: glyBURIDE 5 MG TABLET PO SCH (07:56)
[2019-11-12] MEDS: ENOXAPARIN SODIUM 40 MG/0.4 ML DISP.SYRIN SQ SCH (07:57)
[2019-11-12] MEDS: LOSARTAN POTASSIUM 50 MG TABLET PO SCH (07:58)
[2019-11-12] MEDS: ASPIRIN 81 MG TAB.CHEW PO SCH (07:58)
[2019-11-12 09:58] LABS: BASOPHILS % (AUTO) 0.8 % (0.0-2.0); EOSINOPHILS # (AUTO) 0.2 K/uL (0.0-0.7); EOSINOPHILS % (AUTO) 4.8 % (0.0-7.0); HEMATOCRIT 34.3 % (31.2-41.9); LYMPHOCYTES # (AUTO) 1.5 K/uL (20.0-40.0); LYMPHOCYTES % (AUTO) 46.6 % (20.5-51.5); MEAN CORPUSCULAR HEMOGLOBIN 28.3 uug (24.7-32.8); MEAN CORPUSCULAR HGB CONC 32 g/dL (32.3-35.6); MEAN CORPUSCULAR VOLUME 87.9 fL (75.5-95.3); MONOCYTES # (AUTO) 0.4 K/uL (2.0-10.0); MONOCYTES % (AUTO) 13.3 % (0.0-11.0); NEUTROPHILS # (AUTO) 1.1 K/uL (1.8-8.9); NEUTROPHILS % (AUTO) 34.5 % (38.5-71.5); PLATELET COUNT (AUTO) 240 K/uL (179-408); WHITE BLOOD COUNT (AUTO) 3.3 K/uL (3.8-11.8)
[2019-11-12 10:22] LABS: CREATININE 0.9 mg/dL (0.6-1.3); MAGNESIUM 1.5 mg/dL (1.8-2.4); PHOSPHOROUS 3.4 mg/dL (2.5-4.9); POTASSIUM 3.5 mmol/L (3.5-5.1)
[2019-11-12] MEDS: OXYBUTYNIN CHLORIDE 5 MG TABLET PO SCH (10:31)
[2019-11-12 11:04] LABS: THYROID STIMULATING HORMONE 1.86 mIU/mL (0.358-3.740)
[2019-11-12 11:50] VITALS: BP 117/51
[2019-11-12 15:15] VITALS: BP 140/68
--- NOTE | 2019-11-12 15:39 | NUR ---
Pt alert to name. Pt has not teeth changed texture to puree. Implemented skin management, fall and aspiration precautions. Grubbs catheter intact draining cloudy urine. IF on r ac intact. IVF infusing as ordered. Call light is within reach.
--- NOTE | 2019-11-12 17:57 | NUR ---
Urine specimen sent to lab. Pt is in no acute distress. Call light is within reach.
--- NOTE | 2019-11-12 19:45 | NUR ---
Received patient asleep. Patient shows no signs or symptoms of distress at this time. Vital signs stable. No fever noted at this time. Safety measures in place. Will continue to monitor patient.
[2019-11-12 20:05] VITALS: BP 136/59
[2019-11-12] MEDS: ATORVASTATIN 10 MG TABLET PO SCH (20:52)
[2019-11-13] MEDS: PIPERACILLIN SODIUM/TAZOBACTAM 3.37 G in IV DEXTROSE 5% 100 ML IV SCH ×2 (05:02→13:50)
[2019-11-13 05:55] VITALS: BP 158/60
[2019-11-13] MEDS: PANTOPRAZOLE SODIUM 40 MG TABLET.DR PO SCH (06:17)
--- NOTE | 2019-11-13 06:28 | NUR ---
Patient shows no signs or symptoms of distress at this time. Vital signs stable. No fever noted at this time. Safety measures in place. Patient to be endorsed to day shift nurse in stable condition.
--- NOTE | 2019-11-13 08:00 | NUR ---
Pt in bed asleep, arousable to name and touch, confused. On RA with no SOB or distress noted at this time. IV on right AC 22g flushed and patent. Grubbs catheter in place draining slightly cloudy yellow urine. Bed locked in lowest position with siderails 3x up, call light within reach.
[2019-11-13] MEDS: METFORMIN HCL 500 MG TABLET PO SCH ×2 (09:40→16:46)
[2019-11-13] MEDS: OXYBUTYNIN CHLORIDE 5 MG TABLET PO SCH (09:40)
[2019-11-13] MEDS: glyBURIDE 5 MG TABLET PO SCH (09:42)
[2019-11-13] MEDS: ASPIRIN 81 MG TAB.CHEW PO SCH (09:45)
[2019-11-13] MEDS: LOSARTAN POTASSIUM 50 MG TABLET PO SCH (09:51)
[2019-11-13] MEDS: ENOXAPARIN SODIUM 40 MG/0.4 ML DISP.SYRIN SQ SCH (09:55)
[2019-11-13 11:43] VITALS: BP 150/43
--- NOTE | 2019-11-13 12:00 | NUR ---
Called lab and informed Rony to redraw poncho's lab since 3x unsuccessful attempts this morning
[2019-11-13 16:00] VITALS: BP 144/72
[2019-11-13 16:14] LABS: BASOPHILS % (AUTO) 0.7 % (0.0-2.0); EOSINOPHILS # (AUTO) 0.1 K/uL (0.0-0.7); EOSINOPHILS % (AUTO) 3.4 % (0.0-7.0); HEMOGLOBIN 10.1 g/dL (10.9-14.3); LYMPHOCYTES # (AUTO) 1.5 K/uL (20.0-40.0); LYMPHOCYTES % (AUTO) 43.8 % (20.5-51.5); MEAN CORPUSCULAR HEMOGLOBIN 28.6 uug (24.7-32.8); MEAN CORPUSCULAR HGB CONC 33 g/dL (32.3-35.6); MEAN CORPUSCULAR VOLUME 87.5 fL (75.5-95.3); MONOCYTES # (AUTO) 0.2 K/uL (2.0-10.0); MONOCYTES % (AUTO) 6.5 % (0.0-11.0); NEUTROPHILS # (AUTO) 1.5 K/uL (1.8-8.9); NEUTROPHILS % (AUTO) 45.6 % (38.5-71.5); PLATELET COUNT (AUTO) 267 K/uL (179-408); RED BLOOD CELL COUNT(AUTO) 3.54 MIL/uL (3.63-4.92); WHITE BLOOD COUNT (AUTO) 3.3 K/uL (3.8-11.8)
[2019-11-13 16:30] LABS: CREATININE 0.9 mg/dL (0.6-1.3); MAGNESIUM 1.3 mg/dL (1.8-2.4); PHOSPHOROUS 2.5 mg/dL (2.5-4.9)
[2019-11-13] MEDS ORDERED: DEXTROSE 50% 50 ML DISP.SYRIN IV PRN (17:30)
[2019-11-13] MEDS ORDERED: MAGNESIUM SULFATE/D5W 100 ML IV SCH (17:30)
[2019-11-13] MEDS ORDERED: MEROPENEM 0.5 G in IV NORMAL SALINE 50 ML IV SCH (18:00)
[2019-11-13] MEDS: MAGNESIUM SULFATE/D5W 100 ML IV SCH ×2 (18:32→19:55)
[2019-11-13] MEDS: IV NS 1000 ML 1,000 ML IV PRN (19:00)
--- NOTE | 2019-11-13 19:30 | NUR ---
Received patient in bed. No signs or symptoms of acute distress noted at this time. Patient is on RA no signs or symptoms of SOB or pain at this time. Patient is confused. IV patent and intact infusing fluids per order. Grubbs in place draining via gravity. Bed is low and locked. Bed alarm on and safety measures in place. Will continue to monitor.
[2019-11-13 20:21] VITALS: BP 138/64
[2019-11-13] MEDS: ATORVASTATIN 10 MG TABLET PO SCH (20:39)
[2019-11-13] MEDS: BLOOD SUGAR DIAGNOSTIC 1 EACH STRIP VI SCH (20:40)
[2019-11-13] MEDS: INSULIN REGULAR, HUMAN 300 UNIT/3 ML VIAL SQ PRN (20:42)
[2019-11-13] MEDS: MEROPENEM 0.5 G in IV NORMAL SALINE 50 ML IV SCH ×2 (22:07→23:26)
[2019-11-14 05:20] VITALS: BP 150/62
[2019-11-14] MEDS: BLOOD SUGAR DIAGNOSTIC 1 EACH STRIP VI SCH ×4 (06:39→21:10)
[2019-11-14] MEDS: PANTOPRAZOLE SODIUM 40 MG TABLET.DR PO SCH (06:39)
--- NOTE | 2019-11-14 06:41 | NUR ---
Patient shows no signs or symptoms of acute distress at this time. No fever noted. Patient slept through the night. IV right forearm patent and intact. Safety measures in place and will endorse to oncoming nurse.
[2019-11-14] MEDS ORDERED: MEROPENEM 0.5 G in IV NORMAL SALINE 50 ML IV SCH (07:00)
[2019-11-14 08:00] VITALS: BP 153/60
[2019-11-14] MEDS: ASPIRIN 81 MG TAB.CHEW PO SCH (08:00)
[2019-11-14] MEDS: METFORMIN HCL 500 MG TABLET PO SCH ×2 (08:00→17:06)
--- NOTE | 2019-11-14 08:00 | NUR ---
Pt in bed awake, confused, on RA with no SOB or distress noted at this time. IV on right FA 22g running NS @ 100cc. Legs are contracted. Grubbs catheter in place. Bed locked in lowest position with siderails 3x up. Call light within reach
[2019-11-14] MEDS: LOSARTAN POTASSIUM 50 MG TABLET PO SCH (08:01)
[2019-11-14] MEDS: glyBURIDE 5 MG TABLET PO SCH (08:01)
[2019-11-14] MEDS: ENOXAPARIN SODIUM 40 MG/0.4 ML DISP.SYRIN SQ SCH (08:03)
[2019-11-14] MEDS: OXYBUTYNIN CHLORIDE 5 MG TABLET PO SCH (08:07)
[2019-11-14] MEDS: IV NS 1000 ML 1,000 ML IV PRN ×2 (11:13→21:35)
[2019-11-14 11:37] VITALS: BP 127/86
[2019-11-14 12:02] LABS: MAGNESIUM 1.4 mg/dL (1.8-2.4); PHOSPHOROUS 2.6 mg/dL (2.5-4.9); POTASSIUM 3.9 mmol/L (3.5-5.1)
[2019-11-14 12:07] LABS: BASOPHILS % (AUTO) 0.4 % (0.0-2.0); EOSINOPHILS # (AUTO) 0.1 K/uL (0.0-0.7); EOSINOPHILS % (AUTO) 2.3 % (0.0-7.0); HEMATOCRIT 31.4 % (31.2-41.9); HEMOGLOBIN 10.3 g/dL (10.9-14.3); LYMPHOCYTES # (AUTO) 1.3 K/uL (20.0-40.0); LYMPHOCYTES % (AUTO) 29.7 % (20.5-51.5); MEAN CORPUSCULAR HEMOGLOBIN 28.8 uug (24.7-32.8); MEAN CORPUSCULAR HGB CONC 33 g/dL (32.3-35.6); MEAN CORPUSCULAR VOLUME 88.2 fL (75.5-95.3); MONOCYTES # (AUTO) 0.2 K/uL (2.0-10.0); MONOCYTES % (AUTO) 5.5 % (0.0-11.0); NEUTROPHILS # (AUTO) 2.6 K/uL (1.8-8.9); NEUTROPHILS % (AUTO) 62.1 % (38.5-71.5); PLATELET COUNT (AUTO) 235 K/uL (179-408); RED BLOOD CELL COUNT(AUTO) 3.56 MIL/uL (3.63-4.92); WHITE BLOOD COUNT (AUTO) 4.2 K/uL (3.8-11.8)
[2019-11-14] MEDS: INSULIN REGULAR, HUMAN 300 UNIT/3 ML VIAL SQ PRN ×3 (12:11→21:14)
[2019-11-14 16:00] VITALS: BP 122/51
[2019-11-14 20:06] VITALS: BP 142/118
[2019-11-14] MEDS: ATORVASTATIN 10 MG TABLET PO SCH (21:01)
[2019-11-14 21:06] VITALS: BP 139/60
[2019-11-14] MEDS: MEROPENEM 0.5 G in IV NORMAL SALINE 50 ML IV SCH (23:11)
[2019-11-15] MEDS: MEROPENEM 0.5 G in IV NORMAL SALINE 50 ML IV SCH ×2 (06:05→14:58)
[2019-11-15] MEDS: PANTOPRAZOLE SODIUM 40 MG TABLET.DR PO SCH (06:05)
[2019-11-15] MEDS: BLOOD SUGAR DIAGNOSTIC 1 EACH STRIP VI SCH ×3 (06:35→16:30)
[2019-11-15 06:46] VITALS: BP 150/62
--- NOTE | 2019-11-15 06:54 | NUR ---
Pt slept intermittently throughout the night. No signs of distress. vital signs stable. safety precaution in place. Call light within reach
[2019-11-15 07:06] LABS: CREATININE 0.9 mg/dL (0.6-1.3)
--- NOTE | 2019-11-15 08:00 | NUR ---
received pt. resting in bed alert oriented to self. pt. appears in no distress. pt. appears to be resting comfortably. IV in R forearm 22 gauge intact patent running prescribed fluid. pt. on room air saturating well. pt. has tendency to scratch herself on occasion. Grubbs catheter in place draining tea color urine. safety measures in place. call light within reach. will continue to monitor pt.
[2019-11-15] MEDS: METFORMIN HCL 500 MG TABLET PO SCH ×2 (08:07→18:07)
[2019-11-15] MEDS: OXYBUTYNIN CHLORIDE 5 MG TABLET PO SCH (08:07)
[2019-11-15] MEDS: glyBURIDE 5 MG TABLET PO SCH (08:07)
[2019-11-15] MEDS: ASPIRIN 81 MG TAB.CHEW PO SCH (08:19)
[2019-11-15] MEDS: LOSARTAN POTASSIUM 50 MG TABLET PO SCH (08:19)
[2019-11-15] MEDS: ENOXAPARIN SODIUM 40 MG/0.4 ML DISP.SYRIN SQ SCH (08:21)
--- NOTE | 2019-11-15 11:10 | NUR ---
WOUND CARE CONSULT: PT SEEN FOR INCONTINENCE ASSOCIATED SKIN DAMAGE OVER PREVIOUS SACRAL SCARRING. PT NOTED TO BE SCRATCHING AT HER SKIN. PT IS COMBATIVE AT TIMES. RECOMMENDATIONS MADE FOR SKIN PROTECTION AND SKIN CARE. DISCUSSED WITH NURSING STAFF AND INSTRUMENT TECHNICIAN APPRENTICE. MD IN AGREEMENT WITH PLAN OF CARE. Addendum: 11/15/19 at 1113 by RADHA MCKEON RN Amended: Links added.
[2019-11-15 11:40] VITALS: BP 141/57
[2019-11-15] MEDS: INSULIN REGULAR, HUMAN 300 UNIT/3 ML VIAL SQ PRN ×2 (12:27→18:10)
[2019-11-15 16:10] VITALS: BP 141/71
--- NOTE | 2019-11-15 19:20 | NUR ---
pt. discharged. pt. picked up by ambulance. son is aware of pt.'s arrival. midline in R UA inserted and wrapped with kerlix. pt. leaving with infante catheter in from admission. all discharge paperwork with pt. signed by 2 RNs. Pt. has no belongings.
== END 2019-11-15 18:45 | disposition home health service (06) | DRG 689 ==
LOC: ER 17:55 → MEDSURG3 23:39
PROVIDERS: ADMIT Registered Nurse; ATTEND Nurse Practitioner Acute Care
DX: N39.0 Urinary tract infection, site not specified (principal); G92 Toxic encephalopathy; N17.0 Acute kidney failure with tubular necrosis; E44.0 Moderate protein-calorie malnutrition; Z16.12 Extended spectrum beta lactamase (ESBL) resistance; M62.82 Rhabdomyolysis; D68.69 Other thrombophilia; B96.20 Unspecified Escherichia coli [E. coli] as the cause of diseases classified elsewhere; Z74.09 Other reduced mobility; E86.0 Dehydration; D63.8 Anemia in other chronic diseases classified elsewhere; E78.5 Hyperlipidemia, unspecified; F03.90 Unspecified dementia, unspecified severity, without behavioral disturbance, psychotic disturbance, mood disturbance, and anxiety; I10 Essential (primary) hypertension; Z79.82 Long term (current) use of aspirin; Z87.440 Personal history of urinary (tract) infections; R62.7 Adult failure to thrive; D72.819 Decreased white blood cell count, unspecified; E11.65 Type 2 diabetes mellitus with hyperglycemia; M19.90 Unspecified osteoarthritis, unspecified site; M54.30 Sciatica, unspecified side; N31.9 Neuromuscular dysfunction of bladder, unspecified; Z79.84 Long term (current) use of oral hypoglycemic drugs
CPT/HCPCS: 36415; 70030-TC; 71045; 76770; 83605; 83735; 84100; 84443; 85025; 85730; 87040; 87077; 87086; 93005; A9150; G0378; J0696; J1650; J1815; J2185; J2543; J3475; J3490; J7030; J7060

== ENCOUNTER 2020-05-10 18:12 | Inpatient (IN) | payer MEDICARE, OTHER ==
[~2020-05-10] VITALS: Ht 154.9 cm; Wt 52.2 kg
[~2020-05-10 18:12] MED LIST changes: +AMLO10TA59 PO; -BENA20TA9 PO; -CIPR250T4 PO; +GLYB2.5T4 PO; -LINA5TAB PO; +LOSA100T31 PO; +METO-358; -METR-147 PO; +OXYB5TAB16 PO; +ROSU5TAB13 PO; -SIMV10TA98 PO; -[UNRECOGNIZED DRUG - OTHER] SQ
[2020-05-10] MEDS ORDERED: METO-357 PO (18:24)
[2020-05-10] MEDS ORDERED: METF-440 PO (18:24)
[2020-05-10] MEDS ORDERED: LANTUS INSULIN (18:24)
[2020-05-10] MEDS ORDERED: CRAN500T PO (18:24)
[2020-05-10] MEDS ORDERED: MACROBID (18:24)
[2020-05-10] MEDS ORDERED: [UNRECOGNIZED DRUG - OTHER] (18:24)
[2020-05-10] MEDS ORDERED: diphenhydrAMINE 50 MG/1 ML VIAL IM ONE (18:30)
[2020-05-10] MEDS ORDERED: IV NORMAL SALINE 500 ML BAG IV ONE (18:30)
[2020-05-10] MEDS ORDERED: HALOPERIDOL LACTATE 5 MG/1 ML VIAL IM ONE (18:30)
[2020-05-10] MEDS ORDERED: HALOPERIDOL LACTATE 5 MG/1 ML VIAL ONE (18:39)
[2020-05-10] MEDS ORDERED: diphenhydrAMINE 50 MG/1 ML VIAL ONE (18:39)
--- NOTE | 2020-05-10 19:10 | NUR ---
laboratory worker in room to draw labs
[2020-05-10 19:23] LABS: BASOPHILS % (AUTO) 0.3 % (0.0-2.0); EOSINOPHILS % (AUTO) 0.4 % (0.0-7.0); HEMATOCRIT 35.2 % (31.2-41.9); HEMOGLOBIN 11.6 g/dL (10.9-14.3); LYMPHOCYTES # (AUTO) 0.4 K/uL (20.0-40.0); LYMPHOCYTES % (AUTO) 3.2 % (20.5-51.5); MEAN CORPUSCULAR HEMOGLOBIN 28.3 uug (24.7-32.8); MEAN CORPUSCULAR HGB CONC 33 g/dL (32.3-35.6); MEAN CORPUSCULAR VOLUME 85.9 fL (75.5-95.3); MONOCYTES # (AUTO) 0.2 K/uL (2.0-10.0); MONOCYTES % (AUTO) 1.3 % (0.0-11.0); NEUTROPHILS # (AUTO) 10.7 K/uL (1.8-8.9); NEUTROPHILS % (AUTO) 94.8 % (38.5-71.5); PLATELET COUNT (AUTO) 332 K/uL (179-408); WHITE BLOOD COUNT (AUTO) 11.3 K/uL (3.8-11.8)
[2020-05-10] MEDS ORDERED: CEFTRIAXONE 1 G in IV DEXTROSE 5% 50 ML IV ONE (19:30)
[2020-05-10 19:34] LABS: ALANINE AMINOTRANSFERASE 32 U/L (14-59); ALKALINE PHOSPHATASE 119 U/L (50-136); ASPARTATE AMINOTRANSFERASE 41 U/L (15-37); BILIRUBIN,DIRECT 0.2 mg/dL (0.0-0.2); BILIRUBIN,TOTAL 0.5 mg/dL (0.2-1.0); CARBON DIOXIDE 21 mmol/L (21-32); CHLORIDE 101 mmol/L (98-107); CREATININE 1.3 mg/dL (0.6-1.3); GLUCOSE 284 mg/dL (74-106); POTASSIUM 4.3 mmol/L (3.5-5.1); TOTAL PROTEIN, SERUM 8.4 g/dL (6.4-8.2); UREA NITROGEN, BLOOD 33 mg/dL (7-18)
[2020-05-10 19:36] LABS: ACETAMINOPHEN < 2.0 ug/mL (10-30)
[2020-05-10 19:37] LABS: ETHANOL < 3 MG/DL (0-0)
[2020-05-10 19:58] LABS: THYROID STIMULATING HORMONE 2.996 mIU/mL (0.358-3.740)
[2020-05-10 20:41] LABS: *BILIRUBIN,URIN NEGATIVE (NEGATIVE); *BLOOD, URINE 1+ (NEGATIVE); *CLARITY,URINE CLOUDY (CLEAR); *COLOR,URINE DARK YELLOW (YELLOW); *KETONES,URINE TRACE (NEGATIVE); *UROBILINOGEN,URINE 0.2 E.U./dl (NORMAL); LEUKOCYTE ESTERASE ,URINE 2+ (NEGATIVE); NITRITE, URINE NEGATIVE (NEGATIVE); PH,URINE 5.5 (5.0-8.0); UGLUCOSE NEGATIVE (NEGATIVE)
--- NOTE | 2020-05-10 21:50 | NUR ---
Dr. Cee on panel call with Smith Ritchie DNP. Patient accepted for admission to [facility], diagnosis: altered mental status.
[2020-05-10] MEDS ORDERED: CEFTRIAXONE /D5W 50ML IVPB **ER PYXIS IV ONE (21:53)
--- NOTE | 2020-05-10 22:26 | NUR ---
LEGAL SUPPORT ASSISTANT PINKY REPORTS PATIENT IS COVID -
[2020-05-10] MEDS ORDERED: DEXTROSE 50% 50 ML DISP.SYRIN IV PRN (22:30)
[2020-05-10] MEDS ORDERED: MORPHINE SULFATE 2 MG/1 ML DISP.SYRIN IV PRN (22:30)
[2020-05-10] MEDS ORDERED: Z GUARD REMEDY PASTE 57 GM TUBE TOP PRN (22:30)
[2020-05-10] MEDS ORDERED: ONDANSETRON 4 MG/2 ML VIAL IV PRN (22:30)
[2020-05-10] MEDS ORDERED: ACETAMINOPHEN 325 MG TABLET PO PRN (22:30)
[2020-05-10] MEDS ORDERED: MAGNESIUM HYDROXIDE 30 ML LIQUID UDC PO PRN (22:30)
[2020-05-10] MEDS ORDERED: HYDROCODONE/APAP 5-325MG TABLET PO PRN (22:30)
--- NOTE | 2020-05-10 22:30 | NUR ---
Called med/surg tele floor to give report, patient is assigned to room 314. Pending call back.
--- NOTE | 2020-05-10 23:00 | NUR ---
Patient is sleeping in room, eyes closed. No acute distress is noted at this time.
[2020-05-10 23:32] LABS: BACTERIA,URINE MANY /HPF (NONE SEEN); RBC,URINE 20-50 /HPF (0-3); SQUAMOUS EPITHELIAL CELL,UR MODERATE /HPF (NONE SEEN); WBC,URINE TNTC /HPF (0-3)
--- NOTE | 2020-05-10 23:40 | NUR ---
Report given to ОЛЬГА Dumont.
--- NOTE | 2020-05-10 23:55 | NUR ---
Pt. admitted to tele 314, under care of SUKUMAR Hardin. Belongs List completed, transported with all original paperwork.
[2020-05-11] VITALS: BP 118/54
--- NOTE | 2020-05-11 00:30 | NUR ---
Received pt from ED d/t AMS. Pt is unable to follow commands. No s/s of acute distress noted at this time. Pt is on tele, NSR, 89. V/S stable on room air. Grubbs is intact and draining well. PIV on LFA 22G is intact with 1/2 NS running at 50ml/hr. Bilateral soft restraints in place, to prevent pt from removing lines. Personal belongings checked and with the patient. Safety measures in place. Bed low and locked in position, will continue with the plan of care
[2020-05-11] MEDS: IV 1/2NS 1000 ML 1,000 ML IV PRN (01:18)
[2020-05-11 04:00] VITALS: BP 119/95
[2020-05-11 06:15] LABS: BASOPHILS # (AUTO) 0.1 K/uL (0.0-8.0); BASOPHILS % (AUTO) 0.4 % (0.0-2.0); EOSINOPHILS # (AUTO) 0.1 K/uL (0.0-0.7); EOSINOPHILS % (AUTO) 0.8 % (0.0-7.0); HEMATOCRIT 29.5 % (31.2-41.9); HEMOGLOBIN 9.6 g/dL (10.9-14.3); LYMPHOCYTES % (AUTO) 6.4 % (20.5-51.5); MEAN CORPUSCULAR HEMOGLOBIN 28.1 uug (24.7-32.8); MEAN CORPUSCULAR HGB CONC 33 g/dL (32.3-35.6); MONOCYTES # (AUTO) 0.7 K/uL (2.0-10.0); MONOCYTES % (AUTO) 4.6 % (0.0-11.0); NEUTROPHILS # (AUTO) 13.7 K/uL (1.8-8.9); NEUTROPHILS % (AUTO) 87.8 % (38.5-71.5); PLATELET COUNT (AUTO) 289 K/uL (179-408); RED BLOOD CELL COUNT(AUTO) 3.43 MIL/uL (3.63-4.92); WHITE BLOOD COUNT (AUTO) 15.6 K/uL (3.8-11.8)
--- NOTE | 2020-05-11 06:16 | NUR ---
Pt stable. Pt still non-verbal and cannot follow simple commands. On RA, no s/s of acute distress. NSR,89 on tele monitor. Isolation, fall and aspiration precaution maintained. Will endorse to oncoming nurse.
[2020-05-11 06:18] LABS: BILIRUBIN,TOTAL 0.5 mg/dL (0.2-1.0); MAGNESIUM 1.6 mg/dL (1.8-2.4); PHOSPHOROUS 3.4 mg/dL (2.5-4.9); POTASSIUM 3.9 mmol/L (3.5-5.1)
[2020-05-11] MEDS: BLOOD SUGAR DIAGNOSTIC 1 EACH STRIP VI SCH ×4 (06:34→21:09)
[2020-05-11 06:44] LABS: THYROID STIMULATING HORMONE 2.768 mIU/mL (0.358-3.740)
--- NOTE | 2020-05-11 08:00 | NUR ---
Awake, confused, trying to bite. With bilateral soft wrist restraints, monitored per protocol. IVF infusing.
[2020-05-11] MEDS ORDERED: CRANBERRY FRUIT 500 MG PO SCH (09:00)
[2020-05-11] MEDS ORDERED: ENOXAPARIN SODIUM 30 MG/0.3 ML DISP.SYRIN SUBCUT SCH (09:00)
[2020-05-11] MEDS: MAGNESIUM SULFATE/D5W 100 ML IV SCH ×2 (09:17→10:50)
[2020-05-11] MEDS: METFORMIN HCL 500 MG TABLET PO SCH ×3 (09:17→16:36)
[2020-05-11] MEDS: ASPIRIN 81 MG TAB.CHEW PO SCH (09:17)
[2020-05-11] MEDS: LOSARTAN POTASSIUM 50 MG TABLET PO SCH (09:18)
[2020-05-11] MEDS: AMLODIPINE 10 MG TABLET PO SCH (09:18)
[2020-05-11] MEDS: METOPROLOL SUCCINATE XL 50 MG TAB.SR.24H PO SCH (09:19)
[2020-05-11] MEDS: ENOXAPARIN SODIUM 40 MG/0.4 ML DISP.SYRIN SQ SCH (09:20)
--- NOTE | 2020-05-11 13:00 | NUR ---
Assisted with meals, able to eat fairly with pureed. Sponge bath given. Wound care done, Mepilex applied to sacral area. Placed on 1st step mattress. Repositioned in bed comfortably
[2020-05-11 14:01] VITALS: BP 127/98
[2020-05-11 17:17] VITALS: BP 113/26
[2020-05-11] MEDS: INSULIN REGULAR, HUMAN 300 UNIT/3 ML VIAL SQ PRN (17:23)
--- NOTE | 2020-05-11 18:19 | NUR ---
Ate 50 % of meal, assisted with meal, aspiration precaution. Repositioned comfortably
--- NOTE | 2020-05-11 19:30 | NUR ---
Received in bed, awake, responsive and obeys simple commands, no s/s of respiratory distress, IVF infusing well on left forearm IV access, infante cath draining well, with bilateral soft wrist restraints. Safety measures maintained, will continue to monitor.
[2020-05-11 20:00] VITALS: BP 110/53
[2020-05-11] MEDS: ATORVASTATIN 20 MG TABLET PO SCH (21:02)
[2020-05-11] MEDS ORDERED: CEFTRIAXONE 1 G in IV DEXTROSE 5% 50 ML IV SCH (21:30)
[2020-05-11] MEDS ORDERED: MEROPENEM 0.5 G in IV NORMAL SALINE 50 ML IV ONE (22:00)
[2020-05-11] MEDS ORDERED: MEROPENEM 0.5 G in IV NORMAL SALINE 50 ML IV SCH (22:00)
[2020-05-11] MEDS ORDERED: MEROPENEM 500 MG VIAL IV ONE (22:25)
[2020-05-12 00:25] VITALS: BP 110/56
[2020-05-12] MEDS: IV 1/2NS 1000 ML 1,000 ML IV PRN (01:22)
[2020-05-12 04:00] VITALS: BP 146/49
--- NOTE | 2020-05-12 06:24 | NUR ---
Pt in bed, sleeping, easily arousable to name and touch, no s/s of respiratory distress, no pain or discomfort noted, safety measures maintained, with bilateral soft wrist restraints, all needs attended.
[2020-05-12] MEDS: BLOOD SUGAR DIAGNOSTIC 1 EACH STRIP VI SCH ×4 (06:40→20:44)
[2020-05-12 07:26] LABS: CARBON DIOXIDE 21 mmol/L (21-32); CHLORIDE 104 mmol/L (98-107); CREATININE 0.9 mg/dL (0.6-1.3); GLUCOSE 163 mg/dL (74-106); MAGNESIUM 2.2 mg/dL (1.8-2.4); POTASSIUM 3.6 mmol/L (3.5-5.1); UREA NITROGEN, BLOOD 33 mg/dL (7-18)
[2020-05-12 07:27] LABS: BASOPHILS % (AUTO) 0.4 % (0.0-2.0); EOSINOPHILS # (AUTO) 0.2 K/uL (0.0-0.7); EOSINOPHILS % (AUTO) 1.9 % (0.0-7.0); HEMATOCRIT 31.5 % (31.2-41.9); HEMOGLOBIN 10.3 g/dL (10.9-14.3); LYMPHOCYTES # (AUTO) 0.9 K/uL (20.0-40.0); LYMPHOCYTES % (AUTO) 10.1 % (20.5-51.5); MEAN CORPUSCULAR HEMOGLOBIN 27.9 uug (24.7-32.8); MEAN CORPUSCULAR HGB CONC 33 g/dL (32.3-35.6); MEAN CORPUSCULAR VOLUME 85.4 fL (75.5-95.3); MONOCYTES # (AUTO) 0.4 K/uL (2.0-10.0); MONOCYTES % (AUTO) 3.9 % (0.0-11.0); NEUTROPHILS # (AUTO) 7.8 K/uL (1.8-8.9); NEUTROPHILS % (AUTO) 83.7 % (38.5-71.5); PLATELET COUNT (AUTO) 273 K/uL (179-408); RED BLOOD CELL COUNT(AUTO) 3.69 MIL/uL (3.63-4.92); WHITE BLOOD COUNT (AUTO) 9.3 K/uL (3.8-11.8)
[2020-05-12] MEDS: INSULIN REGULAR, HUMAN 300 UNIT/3 ML VIAL SQ PRN ×4 (08:28→20:59)
[2020-05-12] MEDS: METFORMIN HCL 500 MG TABLET PO SCH ×3 (08:30→16:48)
[2020-05-12] MEDS: LOSARTAN POTASSIUM 50 MG TABLET PO SCH (09:52)
[2020-05-12] MEDS: METOPROLOL SUCCINATE XL 50 MG TAB.SR.24H PO SCH (09:52)
[2020-05-12] MEDS: AMLODIPINE 10 MG TABLET PO SCH (09:52)
[2020-05-12] MEDS: ASPIRIN 81 MG TAB.CHEW PO SCH (09:54)
[2020-05-12] MEDS: ENOXAPARIN SODIUM 40 MG/0.4 ML DISP.SYRIN SQ SCH (09:54)
[2020-05-12] MEDS: MEROPENEM 500 MG in IV NORMAL SALINE 50 ML IV SCH ×2 (09:55→20:31)
[2020-05-12 11:56] VITALS: BP 113/44
[2020-05-12 16:18] VITALS: BP 127/58
[2020-05-12 20:23] VITALS: BP 121/54
[2020-05-12] MEDS: ATORVASTATIN 20 MG TABLET PO SCH (20:32)
[2020-05-13 00:21] VITALS: BP 142/56
[2020-05-13] MEDS: IV 1/2NS 1000 ML 1,000 ML IV PRN (04:31)
[2020-05-13 04:36] VITALS: BP 130/85
--- NOTE | 2020-05-13 05:54 | NUR ---
Patient slept intermittently.No s/s of distress noted.On RA.Iv on left FA 20g patent and intact.Administered ATB IV for UTI no r/a noted.Grubbs catheter draining well with clear urine output.IVF infusing well.Continue safety measures.
[2020-05-13 07:05] LABS: BASOPHILS % (AUTO) 0.6 % (0.0-2.0); EOSINOPHILS # (AUTO) 0.2 K/uL (0.0-0.7); EOSINOPHILS % (AUTO) 2.8 % (0.0-7.0); HEMATOCRIT 33.1 % (31.2-41.9); HEMOGLOBIN 10.8 g/dL (10.9-14.3); LYMPHOCYTES # (AUTO) 0.7 K/uL (20.0-40.0); LYMPHOCYTES % (AUTO) 12.2 % (20.5-51.5); MEAN CORPUSCULAR HEMOGLOBIN 27.9 uug (24.7-32.8); MEAN CORPUSCULAR HGB CONC 33 g/dL (32.3-35.6); MEAN CORPUSCULAR VOLUME 85.4 fL (75.5-95.3); MONOCYTES # (AUTO) 0.4 K/uL (2.0-10.0); NEUTROPHILS # (AUTO) 4.7 K/uL (1.8-8.9); NEUTROPHILS % (AUTO) 78.4 % (38.5-71.5); PLATELET COUNT (AUTO) 308 K/uL (179-408); RED BLOOD CELL COUNT(AUTO) 3.87 MIL/uL (3.63-4.92)
[2020-05-13 07:17] LABS: CREATININE 0.8 mg/dL (0.6-1.3); MAGNESIUM 1.9 mg/dL (1.8-2.4); PHOSPHOROUS 2.5 mg/dL (2.5-4.9); POTASSIUM 3.7 mmol/L (3.5-5.1)
--- NOTE | 2020-05-13 08:00 | NUR ---
PATIENT CONFUSED, AWAKE IN BED. ABLE TO TAKE MEDICATIONS ORDERED. NO SIGNS OF DISTRESS AT THIS TIME. CALL LIGHT IN REACH. BED IN LOW AND LOCKED POSITION. ALL NEEDS MET AT THIS TIME. WILL CONTINUE TO MONITOR.
[2020-05-13] MEDS: METOPROLOL SUCCINATE XL 50 MG TAB.SR.24H PO SCH (08:26)
[2020-05-13] MEDS: LOSARTAN POTASSIUM 50 MG TABLET PO SCH (08:26)
[2020-05-13] MEDS: ASPIRIN 81 MG TAB.CHEW PO SCH (08:26)
[2020-05-13] MEDS: METFORMIN HCL 500 MG TABLET PO SCH ×3 (08:28→16:48)
[2020-05-13] MEDS: AMLODIPINE 10 MG TABLET PO SCH (08:28)
[2020-05-13] MEDS: ENOXAPARIN SODIUM 40 MG/0.4 ML DISP.SYRIN SQ SCH (08:30)
[2020-05-13] MEDS: INSULIN REGULAR, HUMAN 300 UNIT/3 ML VIAL SQ PRN ×3 (08:33→16:50)
[2020-05-13] MEDS ORDERED: MUPIROCIN 2% OINT 22 GM TUBE NS SCH ×2 (09:00→11:45)
[2020-05-13] MEDS: MEROPENEM 500 MG in IV NORMAL SALINE 50 ML IV SCH (09:17)
[2020-05-13 11:33] VITALS: BP 112/52
[2020-05-13] MEDS: BLOOD SUGAR DIAGNOSTIC 1 EACH STRIP VI SCH ×2 (12:12→16:47)
[2020-05-13] MEDS ORDERED: SULF1TAB48 PO (12:54)
[2020-05-13] MEDS ORDERED: MUPI22OI2 NS (12:54)
[2020-05-13 16:00] VITALS: BP 142/63
--- NOTE | 2020-05-13 18:00 | NUR ---
PATIENT DISCHARGED TO HOME VIA AMBULANCE WITH AMBULANCE STAFF. ALL BELONGINGS LEFT WITH PATIENT. DISCHAGE INSTRUCTIONS AND RX GIVEN TO AMBULANCE STAFF AND REPORTED ON PATENT CONDITION. AMBULANCE STAFF IS TO GIVE DISCHARGE INSTRUCTIONS TO FAMILY UPON ARRIVAL BECAUSE PATIENT IS CONFUSED. DC IV AND ARM BAND. PATIENT LEFT IN FAIR CONDITION WITH VS STABLE. Addendum: 05/13/20 at 1907 by ZIGGY LOPEZ RN PATIENT REFUSED ANY PICTURES TO BE TAKEN UPON DISCHARGE.
[2020-05-20] MEDS ORDERED: LOSA50TA3 PO (12:05)
== END 2020-05-13 19:44 | disposition home health service (06) | DRG 689 ==
LOC: ER 18:21 → TELE3 23:49
PROVIDERS: ADMIT Nurse Practitioner Acute Care; ATTEND Nurse Practitioner Acute Care
DX: N39.0 Urinary tract infection, site not specified (principal); G92 Toxic encephalopathy; N17.0 Acute kidney failure with tubular necrosis; D68.69 Other thrombophilia; E78.5 Hyperlipidemia, unspecified; E83.42 Hypomagnesemia; F03.90 Unspecified dementia, unspecified severity, without behavioral disturbance, psychotic disturbance, mood disturbance, and anxiety; I10 Essential (primary) hypertension; E11.65 Type 2 diabetes mellitus with hyperglycemia; M19.90 Unspecified osteoarthritis, unspecified site; Z20.822 Contact with and (suspected) exposure to COVID-19; Z79.82 Long term (current) use of aspirin; Z87.440 Personal history of urinary (tract) infections; I25.10 Atherosclerotic heart disease of native coronary artery without angina pectoris; N31.9 Neuromuscular dysfunction of bladder, unspecified; B96.89 Other specified bacterial agents as the cause of diseases classified elsewhere; Z22.322 Carrier or suspected carrier of Methicillin resistant Staphylococcus aureus; Z79.84 Long term (current) use of oral hypoglycemic drugs
CPT/HCPCS: 36415; 51702; 70030-TC; 70450; 71045; 83735; 84100; 84443; 85025; 85730; 87040; 87086; 93005; A4663; G0378; G0480; J0696; J1200; J1630; J1650; J1815; J2185; J3475; J3490; J7030; J7060

== ENCOUNTER 2020-05-17 10:00 | Inpatient (IN) | payer MEDICARE, OTHER ==
[~2020-05-17] VITALS: Ht 154.9 cm; Wt 52.2 kg
[~2020-05-17 10:00] MED LIST changes: +CRAN500T PO; +LANTUS INSULIN; +MACROBID; +METO-357 PO; +MUPI22OI2 NS; +SULF1TAB48 PO; +[UNRECOGNIZED DRUG - OTHER]
--- NOTE | 2020-05-17 10:13 | NUR ---
Patient brought in by ambulance for increased altered mental status per family request, MD at bedside for assessment
[2020-05-17] MEDS ORDERED: GENTAMICIN SULFATE 20 MG/2 ML VIAL IV ONE (10:30)
[2020-05-17] MEDS ORDERED: GENTAMICIN SULFATE 80 MG/2 ML VIAL ONE (10:33)
[2020-05-17 10:56] LABS: ABG BASE EXCESS -1.4 mmol/L; ABG HCO3 21.8 mmol/L; ABG PCO2 31.7 mmHg (35.0-45.0); ABG PH 7.456 (7.350-7.450); ABG PO2 109.8 mmHg (75.0-100.0); ABG SITE LEFT BRACHIAL; ABG TOTAL HEMOGLOBIN 10.5 G/dL (12.0-16.0); O2Hb 97.3 % (94.0-97.0); VENT MODE Nasal Cannula
[2020-05-17 11:06] LABS: BASOPHILS # (AUTO) 0.1 K/uL (0.0-8.0); BASOPHILS % (AUTO) 1.2 % (0.0-2.0); EOSINOPHILS # (AUTO) 0.2 K/uL (0.0-0.7); EOSINOPHILS % (AUTO) 2.6 % (0.0-7.0); HEMATOCRIT 32.2 % (31.2-41.9); HEMOGLOBIN 10.3 g/dL (10.9-14.3); LYMPHOCYTES % (AUTO) 27.1 % (20.5-51.5); MEAN CORPUSCULAR HEMOGLOBIN 27.3 uug (24.7-32.8); MEAN CORPUSCULAR HGB CONC 32 g/dL (32.3-35.6); MEAN CORPUSCULAR VOLUME 85.6 fL (75.5-95.3); MONOCYTES # (AUTO) 0.5 K/uL (2.0-10.0); MONOCYTES % (AUTO) 6.5 % (0.0-11.0); NEUTROPHILS # (AUTO) 4.7 K/uL (1.8-8.9); NEUTROPHILS % (AUTO) 62.6 % (38.5-71.5); PLATELET COUNT (AUTO) 360 K/uL (179-408); RED BLOOD CELL COUNT(AUTO) 3.76 MIL/uL (3.63-4.92); WHITE BLOOD COUNT (AUTO) 7.4 K/uL (3.8-11.8)
[2020-05-17 11:19] LABS: CREATININE 1.1 mg/dL (0.6-1.3); POTASSIUM 4.5 mmol/L (3.5-5.1)
[2020-05-17 11:25] LABS: BILIRUBIN,DIRECT 0.1 mg/dL (0.0-0.2); BILIRUBIN,TOTAL 0.3 mg/dL (0.2-1.0); TOTAL PROTEIN, SERUM 7.6 g/dL (6.4-8.2)
[2020-05-17 11:29] LABS: *BILIRUBIN,URIN NEGATIVE (NEGATIVE); *BLOOD, URINE 1+ (NEGATIVE); *CLARITY,URINE CLEAR (CLEAR); *COLOR,URINE YELLOW (YELLOW); *KETONES,URINE NEGATIVE (NEGATIVE); *UROBILINOGEN,URINE 0.2 E.U./dl (NORMAL); LEUKOCYTE ESTERASE ,URINE NEGATIVE (NEGATIVE); NITRITE, URINE NEGATIVE (NEGATIVE); UGLUCOSE NEGATIVE (NEGATIVE)
[2020-05-17 11:30] LABS: MAGNESIUM 1.9 mg/dL (1.8-2.4); PHOSPHOROUS 3.7 mg/dL (2.5-4.9)
[2020-05-17 11:33] LABS: THYROID STIMULATING HORMONE 1.827 mIU/mL (0.358-3.740)
[2020-05-17] MEDS ORDERED: IV NS 1000 ML 1,000 ML IV ONE (11:45)
[2020-05-17] MEDS ORDERED: IOHEXOL 300MG/ML 100 ML INFUS..BTL ONE (11:56)
[2020-05-17] MEDS ORDERED: SWABABLE VALVE TRANSFER SET EA MC ONE (11:56)
[2020-05-17] MEDS ORDERED: IV NORMAL SALINE 250 ML IV ONE (11:56)
--- NOTE | 2020-05-17 12:30 | NUR ---
Patient taken for CT at this time
--- NOTE | 2020-05-17 13:00 | NUR ---
PAtient returned from CT at this time
--- NOTE | 2020-05-17 13:14 | NUR ---
DUE TO CONTRAST DYE THAT WAS USED DURING CT SCAN, PATIENT IS NOT ALLOWED TO TAKE METFORMIN FOR THE NEXT 48 HOURS
--- NOTE | 2020-05-17 13:33 | NUR ---
[facility] CALLED FOR PANEL CALL
--- NOTE | 2020-05-17 14:06 | NUR ---
Report given to Min at this time
[2020-05-17] MEDS ORDERED: ONDANSETRON 4 MG/2 ML VIAL IV PRN (14:45)
[2020-05-17] MEDS ORDERED: Z GUARD REMEDY PASTE 57 GM TUBE TOP PRN (14:45)
[2020-05-17] MEDS ORDERED: ZOLPIDEM 5 MG TABLET PO PRN (14:45)
[2020-05-17] MEDS ORDERED: ACETAMINOPHEN 325 MG TABLET PO PRN (14:45)
[2020-05-17] MEDS ORDERED: HYDROCODONE/APAP 5-325MG TABLET PO PRN (14:45)
[2020-05-17] MEDS ORDERED: MAGNESIUM HYDROXIDE 30 ML LIQUID UDC PO PRN (14:45)
--- NOTE | 2020-05-17 15:00 | NUR ---
Pt. admitted to [facility] , under care of SUKUMAR Martinez Belongs List completed and sent with patient
[2020-05-17] MEDS ORDERED: QUETIAPINE FUMARATE 25 MG TABLET PO PRN (16:15)
[2020-05-17 16:21] LABS: BACTERIA,URINE FEW /HPF (NONE SEEN); SQUAMOUS EPITHELIAL CELL,UR FEW /HPF (NONE SEEN); URINE AMORPHOUS URATE FEW /HPF; WBC,URINE 0-3 /HPF (0-3)
[2020-05-17] MEDS ORDERED: DEXTROSE 50% 50 ML DISP.SYRIN IV PRN (16:45)
--- NOTE | 2020-05-17 17:15 | NUR ---
Received this patient, admission from ER, 84 yo female, with diagnosis of altered mental status. Awake, confused, room air. Routine admission care rendered. Incontinence care done. Noted partial thickness loss on sacral area. Mepilex applied. Wound care consult ordered.
--- NOTE | 2020-05-17 18:24 | NUR ---
Assisted with dinner, pureed, able to consume 100 % of meal served.
[2020-05-17] MEDS: IV 1/2NS 1000 ML 1,000 ML IV PRN (19:06)
[2020-05-17 20:32] VITALS: BP 133/48
[2020-05-17] MEDS: BLOOD SUGAR DIAGNOSTIC 1 EACH STRIP VI SCH (20:35)
[2020-05-17] MEDS: ENOXAPARIN SODIUM 30 MG/0.3 ML DISP.SYRIN SQ SCH (20:37)
[2020-05-17] MEDS: MUPIROCIN 2% OINT 22 GM TUBE NS SCH (20:37)
[2020-05-17] MEDS: INSULIN REGULAR, HUMAN 300 UNIT/3 ML VIAL SQ PRN (20:38)
[2020-05-18 05:40] VITALS: BP 136/54
[2020-05-18] MEDS: PANTOPRAZOLE SODIUM 40 MG TABLET.DR PO SCH (06:07)
[2020-05-18] MEDS: BLOOD SUGAR DIAGNOSTIC 1 EACH STRIP VI SCH ×4 (06:31→20:15)
[2020-05-18 07:12] LABS: BASOPHILS # (AUTO) 0.1 K/uL (0.0-8.0); EOSINOPHILS # (AUTO) 0.2 K/uL (0.0-0.7); EOSINOPHILS % (AUTO) 2.8 % (0.0-7.0); HEMATOCRIT 31.2 % (31.2-41.9); HEMOGLOBIN 10.2 g/dL (10.9-14.3); LYMPHOCYTES # (AUTO) 2.4 K/uL (20.0-40.0); LYMPHOCYTES % (AUTO) 36.5 % (20.5-51.5); MEAN CORPUSCULAR HGB CONC 33 g/dL (32.3-35.6); MEAN CORPUSCULAR VOLUME 85.6 fL (75.5-95.3); MONOCYTES # (AUTO) 0.5 K/uL (2.0-10.0); MONOCYTES % (AUTO) 8.1 % (0.0-11.0); NEUTROPHILS # (AUTO) 3.4 K/uL (1.8-8.9); NEUTROPHILS % (AUTO) 51.6 % (38.5-71.5); PLATELET COUNT (AUTO) 353 K/uL (179-408); RED BLOOD CELL COUNT(AUTO) 3.64 MIL/uL (3.63-4.92); WHITE BLOOD COUNT (AUTO) 6.6 K/uL (3.8-11.8)
[2020-05-18 07:30] LABS: CREATININE 0.9 mg/dL (0.6-1.3); MAGNESIUM 1.8 mg/dL (1.8-2.4); PHOSPHOROUS 4.2 mg/dL (2.5-4.9); POTASSIUM 4.6 mmol/L (3.5-5.1)
--- NOTE | 2020-05-18 07:30 | NUR ---
received report on pt, awake in bed, alert to self. pt has partial thickness on sacrum covered with foam dressing. pt on room air saturating at 100% no signs of distress noted, no reports of pain, pt on bedrest, first step mattress ordered, pt incontinent has on diaper. IV access on the right FA 22g 1/2NS infusing at 75cc. Bed in low and locked position, call light within reach, fall and safety precautions in place, will continue with plan of care.
[2020-05-18] MEDS ORDERED: LOSARTAN POTASSIUM 50 MG TABLET PO SCH (09:00)
[2020-05-18] MEDS: ASPIRIN 81 MG TAB.CHEW PO SCH (10:12)
[2020-05-18] MEDS: METOPROLOL SUCCINATE XL 50 MG TAB.SR.24H PO SCH (10:14)
[2020-05-18] MEDS: ATORVASTATIN 10 MG TABLET PO SCH (10:14)
[2020-05-18] MEDS: AMLODIPINE 10 MG TABLET PO SCH (10:16)
[2020-05-18] MEDS: LOSARTAN POTASSIUM 50 MG TABLET PO SCH (10:20)
[2020-05-18] MEDS: MUPIROCIN 2% OINT 22 GM TUBE NS SCH ×2 (10:20→20:15)
[2020-05-18 11:48] VITALS: BP 127/41
[2020-05-18] MEDS: INSULIN REGULAR, HUMAN 300 UNIT/3 ML VIAL SQ PRN ×3 (11:51→20:16)
--- NOTE | 2020-05-18 14:00 | NUR ---
pt on first step mattress, pt able to walk to with two person assist and walker to the wall. please see OT/PT notes.
[2020-05-18 15:49] VITALS: BP 119/53
--- NOTE | 2020-05-18 18:00 | NUR ---
pt in bed resting, alert to self, partial thickness on sacrum area, covered with hydrogel and foam dressing, clean dry and intact. pt on room air, no signs of distress noted, no reports of pain, all needs met during this shift. IV acces on the right FA 22g IVF infusing 1/2NA at 75cc. pt did well with Physical Therapy, pt able to walk to wall with walker and two person assist. Pt voids via diaper, all medication given as ordered. Meds to be crushed and given with applesauce. Bed in low and locked position, call light within reach, fall and safety precautions in place, will endorse to oncoming nurse.
[2020-05-18] MEDS: IV 1/2NS 1000 ML 1,000 ML IV PRN (19:51)
[2020-05-18] MEDS: ENOXAPARIN SODIUM 30 MG/0.3 ML DISP.SYRIN SQ SCH (20:18)
[2020-05-18 20:33] VITALS: BP 114/65
[2020-05-19] MEDS: LORAZEPAM 2 MG/1 ML VIAL IV PRN (00:56)
--- NOTE | 2020-05-19 03:00 | NUR ---
PATIENTS IV NOTED TO RIGHT AC, LEAKING AND DISLODGED. UNABLE TO RESTART IV. THERMAL CUTTER HAND NOTIFIED. WILL CONTINUE TO MONITOR AND ASSESS.
[2020-05-19 05:46] VITALS: BP 89/41
[2020-05-19] MEDS: PANTOPRAZOLE SODIUM 40 MG TABLET.DR PO SCH (06:10)
[2020-05-19] MEDS: BLOOD SUGAR DIAGNOSTIC 1 EACH STRIP VI SCH ×4 (06:18→20:32)
[2020-05-19 06:52] LABS: BASOPHILS # (AUTO) 0.1 K/uL (0.0-8.0); EOSINOPHILS # (AUTO) 0.2 K/uL (0.0-0.7); EOSINOPHILS % (AUTO) 3.1 % (0.0-7.0); HEMATOCRIT 34.7 % (31.2-41.9); HEMOGLOBIN 11.1 g/dL (10.9-14.3); LYMPHOCYTES # (AUTO) 2.7 K/uL (20.0-40.0); LYMPHOCYTES % (AUTO) 37.2 % (20.5-51.5); MEAN CORPUSCULAR HEMOGLOBIN 27.7 uug (24.7-32.8); MEAN CORPUSCULAR HGB CONC 32 g/dL (32.3-35.6); MEAN CORPUSCULAR VOLUME 86.5 fL (75.5-95.3); MONOCYTES # (AUTO) 0.5 K/uL (2.0-10.0); MONOCYTES % (AUTO) 6.8 % (0.0-11.0); NEUTROPHILS # (AUTO) 3.8 K/uL (1.8-8.9); NEUTROPHILS % (AUTO) 51.9 % (38.5-71.5); PLATELET COUNT (AUTO) 453 K/uL (179-408); RED BLOOD CELL COUNT(AUTO) 4.01 MIL/uL (3.63-4.92); WHITE BLOOD COUNT (AUTO) 7.4 K/uL (3.8-11.8)
--- NOTE | 2020-05-19 07:15 | NUR ---
Asleep. HOB elevate. Breathing even and non labored. No facial grimacing noted. Kept comfortable. Call light within reach. Will continue to monitor.
[2020-05-19 07:25] LABS: CREATININE 0.8 mg/dL (0.6-1.3); MAGNESIUM 1.8 mg/dL (1.8-2.4); PHOSPHOROUS 4.4 mg/dL (2.5-4.9); POTASSIUM 4.3 mmol/L (3.5-5.1)
[2020-05-19 08:35] VITALS: BP 139/49
[2020-05-19] MEDS: MUPIROCIN 2% OINT 22 GM TUBE NS SCH ×2 (08:40→20:53)
[2020-05-19] MEDS: ASPIRIN 81 MG TAB.CHEW PO SCH (08:40)
[2020-05-19] MEDS: AMLODIPINE 10 MG TABLET PO SCH (08:41)
[2020-05-19] MEDS: LOSARTAN POTASSIUM 50 MG TABLET PO SCH (08:41)
[2020-05-19] MEDS: ATORVASTATIN 10 MG TABLET PO SCH (08:42)
[2020-05-19] MEDS: METOPROLOL SUCCINATE XL 50 MG TAB.SR.24H PO SCH (08:42)
[2020-05-19 12:00] VITALS: BP 120/60
[2020-05-19] MEDS: INSULIN REGULAR, HUMAN 300 UNIT/3 ML VIAL SQ PRN ×3 (12:03→20:50)
[2020-05-19 15:54] VITALS: BP 129/70
--- NOTE | 2020-05-19 18:47 | NUR ---
Alert and oriented x 1. No acute distress. Due meds given and tolerated. No s/sx of hypo/hyperglycemia noted. Kept comfortable. Needs attended. Will continue to monitor and endorse accordingly.
[2020-05-19 20:11] VITALS: BP 121/48
[2020-05-19] MEDS: ENOXAPARIN SODIUM 30 MG/0.3 ML DISP.SYRIN SQ SCH (20:33)
[2020-05-20] MEDS: LORAZEPAM 2 MG/1 ML VIAL IV PRN (00:12)
[2020-05-20 05:23] VITALS: BP 128/44
[2020-05-20] MEDS: PANTOPRAZOLE SODIUM 40 MG TABLET.DR PO SCH (06:17)
[2020-05-20] MEDS: BLOOD SUGAR DIAGNOSTIC 1 EACH STRIP VI SCH ×2 (06:42→12:06)
--- NOTE | 2020-05-20 07:06 | NUR ---
End of Shift: Patient is AOx1, no acute distress noted. Due medications given and tolerated well. IV access on right hand 22G running NS 75mL/HR. Changed dressing on sacrum. Patient slept intermittently. Safety precautions in place, bed is low locked position, side rails x2. Patient kept comfortable. Will continue to monitor and endorse to the AM shift nurse.
[2020-05-20 07:12] LABS: BASOPHILS # (AUTO) 0.1 K/uL (0.0-8.0); EOSINOPHILS # (AUTO) 0.2 K/uL (0.0-0.7); EOSINOPHILS % (AUTO) 3.1 % (0.0-7.0); HEMATOCRIT 33.6 % (31.2-41.9); HEMOGLOBIN 10.8 g/dL (10.9-14.3); LYMPHOCYTES # (AUTO) 1.8 K/uL (20.0-40.0); LYMPHOCYTES % (AUTO) 32.7 % (20.5-51.5); MEAN CORPUSCULAR HEMOGLOBIN 27.6 uug (24.7-32.8); MEAN CORPUSCULAR HGB CONC 32 g/dL (32.3-35.6); MEAN CORPUSCULAR VOLUME 85.9 fL (75.5-95.3); MONOCYTES # (AUTO) 0.4 K/uL (2.0-10.0); MONOCYTES % (AUTO) 6.5 % (0.0-11.0); NEUTROPHILS # (AUTO) 3.2 K/uL (1.8-8.9); NEUTROPHILS % (AUTO) 56.7 % (38.5-71.5); PLATELET COUNT (AUTO) 398 K/uL (179-408); RED BLOOD CELL COUNT(AUTO) 3.91 MIL/uL (3.63-4.92); WHITE BLOOD COUNT (AUTO) 5.6 K/uL (3.8-11.8)
--- NOTE | 2020-05-20 07:20 | NUR ---
Awake, eyes open, responsive and answers to name. No respiratory distress. No facial grimacing noted. IV on right forearm intact and patent, hydration tolerated by the patient. Safety precautions in place. Kept comfortable. Call light within reach. Will continue to monitor.
[2020-05-20 07:39] LABS: CREATININE 0.8 mg/dL (0.6-1.3); MAGNESIUM 1.8 mg/dL (1.8-2.4); POTASSIUM 4.6 mmol/L (3.5-5.1)
[2020-05-20] MEDS: INSULIN REGULAR, HUMAN 300 UNIT/3 ML VIAL SQ PRN ×2 (08:24→12:08)
[2020-05-20 08:30] VITALS: BP 118/54
[2020-05-20] MEDS: METOPROLOL SUCCINATE XL 50 MG TAB.SR.24H PO SCH (08:44)
[2020-05-20] MEDS: MUPIROCIN 2% OINT 22 GM TUBE NS SCH (08:44)
[2020-05-20] MEDS: LOSARTAN POTASSIUM 50 MG TABLET PO SCH (08:44)
[2020-05-20] MEDS: ASPIRIN 81 MG TAB.CHEW PO SCH (08:44)
[2020-05-20] MEDS: ATORVASTATIN 10 MG TABLET PO SCH (08:44)
[2020-05-20] MEDS: AMLODIPINE 10 MG TABLET PO SCH (08:44)
[2020-05-20] MEDS: IV 1/2NS 1000 ML 1,000 ML IV PRN (09:27)
[2020-05-20 11:45] VITALS: BP 130/43
--- NOTE | 2020-05-20 11:45 | NUR ---
Seen by Manuela wound anna. report given.
--- NOTE | 2020-05-20 12:03 | NUR ---
WOUND CARE CONSULT: PT PRESENTS WITH SACRAL DEEP TISSUE INJURY IN EVOLUTION OVER PREVIOUS AREA OF SCARRING, PRESENT ON ADMISSION. PT NOTED TO BE INCONTINENT OF URINE AND STOOL. SEVERELY CONTRACTED LEGS NOTED WITH LEGS CROSSED AT THIGH. RECOMMENDATIONS MADE FOR SKIN PROTECTION AND WOUND CARE. DISCUSSED WITH NURSING STAFF. PT IS ON FIRST STEP [facility] MATTRESS. FLOWERS IN AGREEMENT WITH PLAN OF CARE. PT HAS HOME HEALTH CARE SERVICE PER PROVIDER N.P. Addendum: 05/20/20 at 1205 by RADHA MCKEON RN Amended: Links added. Addendum: 05/20/20 at 1212 by RADHA MCKEON RN SPOKE WITH BUYER AGENTHOANG ALBERT WHO WILL COORDINATE WOUND CARE WITH HOME HEALTH SERVICE.
[2020-05-20] MEDS ORDERED: LOSA50TA3 PO (12:05)
--- NOTE | 2020-05-20 12:30 | NUR ---
Spoke to Victor M (patient's son) and verbalized he spoke with CARYN Pena and was made aware that patient is going home today. Per Victor M, CARYN ordered air loss mattress for their hospital bed at home. Asked Victor M if his mom has received the flu vaccine and/or pna vaccine. He wants his mom to get pna vaccine. However, he adamantly refuses flu vaccine to be given. Explanation of risks and benefits given for both vaccines. Patient's son verbalized understanding.
[2020-05-20] MEDS ORDERED: PNEUMOCOCCAL 23-VAL P-SAC VAC 0.5 ML VIAL IM ONE (13:00)
--- NOTE | 2020-05-20 13:45 | NUR ---
Administered pneumonia vaccine on right deltoid. Patient tolerated procedure. No bleeding or swelling noted. Will continue to monitor for adverse reactions.
--- NOTE | 2020-05-20 15:40 | NUR ---
Patient is discharged to home with [facility]. Patient is alert and responds to name. Breathing is even and non labored. No sob noted. Spo2 98% on room air. Son Victor M is aware and discharge instructions and education done. Patient's son verbalized understanding. Per Becky, Home health is going to patient's house tomorrow to evaluate the patient. Victor M is aware and was also referred to [facility] for DME per . Son was also informed that per notes, follow up appointment has been made at wound clinic and that he will be receiving a call from Kym from the clinic regarding appt. Son verbalized understanding. Informed Victor M that his mom received pneumonia vaccine on right deltoid. No adverse reactions noted. No bleeding or swelling on injection site. Removed patient's bracelet and IV, patient tolerated. Patient was cleaned prior to discharge and wound dressing changed. Belongings are inventoried and discharged with patient. Endorsement also given to [facility] fine arts chair. Patient left via gurney in stable condition.
[2020-05-20 15:45] VITALS: BP 128/40
== END 2020-05-20 15:49 | disposition home health service (06) | DRG 640 ==
LOC: ER 10:00 → MEDSURG3 14:26
PROVIDERS: ADMIT Nurse Practitioner Family; ATTEND Nurse Practitioner Family
DX: E86.0 Dehydration (principal); G92 Toxic encephalopathy; N17.0 Acute kidney failure with tubular necrosis; J98.11 Atelectasis; D68.69 Other thrombophilia; E44.1 Mild protein-calorie malnutrition; G91.2 (Idiopathic) normal pressure hydrocephalus; E11.9 Type 2 diabetes mellitus without complications; I25.10 Atherosclerotic heart disease of native coronary artery without angina pectoris; E78.5 Hyperlipidemia, unspecified; M19.90 Unspecified osteoarthritis, unspecified site; Z79.82 Long term (current) use of aspirin; Z87.440 Personal history of urinary (tract) infections; F03.90 Unspecified dementia, unspecified severity, without behavioral disturbance, psychotic disturbance, mood disturbance, and anxiety; E88.09 Other disorders of plasma-protein metabolism, not elsewhere classified; N31.9 Neuromuscular dysfunction of bladder, unspecified; Z68.21 Body mass index [BMI] 21.0-21.9, adult; L89.156 Pressure-induced deep tissue damage of sacral region; Z79.84 Long term (current) use of oral hypoglycemic drugs; R93.1 Abnormal findings on diagnostic imaging of heart and coronary circulation; I10 Essential (primary) hypertension; Z20.822 Contact with and (suspected) exposure to COVID-19
CPT/HCPCS: 36415; 36600; 70030-TC; 70450; 71045; 71260; 83550; 83605; 83690; 83735; 84100; 84443; 85025; 85730; 87040; 90732; 93005; 93307; A4663; G0378; J1580; J1650; J1815; J2060; J3490; J7030; J7050; Q9967

== ENCOUNTER 2020-06-09 20:54 | Inpatient (IN) | payer MEDICARE, OTHER ==
[~2020-06-09] VITALS: Ht 154.9 cm; Wt 46.7 kg
[~2020-06-09 20:54] MED LIST changes: -GLYB2.5T4 PO; -INSU100V7 SQ; -LOSA100T31 PO; +LOSA50TA3 PO; -MACROBID; -METO-358; -MUPI22OI2 NS; -OXYB5TAB16 PO; -SULF1TAB48 PO
--- NOTE | 2020-06-09 21:30 | NUR ---
Patient brought in by ambulance for generalized weakness. Placed in RM 2B. NAD noted, awaiting MD byrnes. SR up x 2 for saftey.
--- NOTE | 2020-06-09 21:55 | NUR ---
Pt our of ER for CT.
[2020-06-09 22:04] LABS: BASOPHILS % (AUTO) 0.3 % (0.0-2.0); EOSINOPHILS % (AUTO) 0.1 % (0.0-7.0); HEMOGLOBIN 10.5 g/dL (10.9-14.3); LYMPHOCYTES # (AUTO) 0.6 K/uL (20.0-40.0); LYMPHOCYTES % (AUTO) 4.1 % (20.5-51.5); MEAN CORPUSCULAR HGB CONC 32 g/dL (32.3-35.6); MEAN CORPUSCULAR VOLUME 84.9 fL (75.5-95.3); MONOCYTES # (AUTO) 0.9 K/uL (2.0-10.0); MONOCYTES % (AUTO) 6.4 % (0.0-11.0); NEUTROPHILS # (AUTO) 13.1 K/uL (1.8-8.9); NEUTROPHILS % (AUTO) 89.1 % (38.5-71.5); PLATELET COUNT (AUTO) 294 K/uL (179-408); RED BLOOD CELL COUNT(AUTO) 3.89 MIL/uL (3.63-4.92); WHITE BLOOD COUNT (AUTO) 14.7 K/uL (3.8-11.8)
[2020-06-09 22:13] LABS: CARBON DIOXIDE 20 mmol/L (21-32); CHLORIDE 102 mmol/L (98-107); CREATININE 1.5 mg/dL (0.6-1.3); GLUCOSE 216 mg/dL (74-106); UREA NITROGEN, BLOOD 43 mg/dL (7-18)
[2020-06-09 22:26] LABS: ALANINE AMINOTRANSFERASE 13 U/L (14-59); ALKALINE PHOSPHATASE 82 U/L (50-136); ASPARTATE AMINOTRANSFERASE 12 U/L (15-37); BILIRUBIN,DIRECT 0.1 mg/dL (0.0-0.2); BILIRUBIN,TOTAL 0.4 mg/dL (0.2-1.0); TOTAL PROTEIN, SERUM 7.7 g/dL (6.4-8.2)
[2020-06-09] MEDS ORDERED: PIPERACILLIN SODIUM/TAZOBACTAM 3.375 G in IV DEXTROSE 5% 50 ML IV ONE (22:30)
[2020-06-09] MEDS ORDERED: IV NORMAL SALINE 1000 ML BAG IV ONE (22:30)
[2020-06-09] MEDS ORDERED: PIPERACILLIN/TAZOBACTAM/D5W 50 ML IV ONE (23:18)
[2020-06-10 00:16] LABS: *CLARITY,URINE SLIGHTLY CLOUDY (CLEAR); *COLOR,URINE DARK YELLOW (YELLOW); *KETONES,URINE TRACE (NEGATIVE); *UROBILINOGEN,URINE 0.2 E.U./dl (NORMAL); LEUKOCYTE ESTERASE ,URINE 3+ (NEGATIVE); NITRITE, URINE NEGATIVE (NEGATIVE); PH,URINE 5.5 (5.0-8.0); UGLUCOSE NEGATIVE (NEGATIVE)
[2020-06-10 00:17] LABS: *BILIRUBIN,URIN 2+ (NEGATIVE); *BLOOD, URINE TRACE (NEGATIVE)
[2020-06-10 00:25] LABS: BACTERIA,URINE MANY /HPF (NONE SEEN); MUCUS,URINE FEW /LPF (0-FEW); SQUAMOUS EPITHELIAL CELL,UR FEW /HPF (NONE SEEN); URINE AMORPHOUS URATE MODERATE /HPF; WBC,URINE TNTC /HPF (0-3)
--- NOTE | 2020-06-10 01:25 | NUR ---
Report given to Becky ROLON
--- NOTE | 2020-06-10 01:50 | NUR ---
Dr. Zayas on panel call with Nixon Dobson DNP. Patient accepted for admission to [facility], diagnosis: urosepsis.
[2020-06-10] MEDS ORDERED: ONDANSETRON 4 MG/2 ML VIAL IV PRN (03:00)
[2020-06-10] MEDS ORDERED: Z GUARD REMEDY PASTE 57 GM TUBE TOP PRN (03:00)
--- NOTE | 2020-06-10 03:15 | NUR ---
Patient taken to unit via gurney. NAD noted.
[2020-06-10] MEDS ORDERED: VANCOMYCIN IV 1,000 MG in IV DEXTROSE 5% 250 ML IV ONE (03:30)
[2020-06-10 03:40] VITALS: BP 127/65
[2020-06-10] MEDS: IV NS 1000 ML 1,000 ML IV PRN ×2 (03:48→21:22)
[2020-06-10] MEDS ORDERED: PIPERACILLIN/TAZOBACTAM/D5W 50 ML IV ONE (03:58)
[2020-06-10] MEDS ORDERED: VANCOMYCIN IV 200 ML ONE (03:59)
--- NOTE | 2020-06-10 04:15 | NUR ---
Pt. admitted to telemetry, under care of Dr. Dobsno admission from ER, 84 yo female, with diagnosis of sepsis. Awake, confused, room air saturating @98%, no SOB noted. No acute distress noted at this time. Belongs List completed. Routine admission care rendered. Noted partial thickness loss on sacral area. Mepilex applied. Noted with pressure sore on heel. Wound care consult ordered. No reports of pain, pt on bedrest, first step mattress ordered. Grubbs intact, draining reed, cloudy urine with sediments noted. IV access on the right FA 22g running NS@ 75cc. Infusing IV zosyn no adverse reactions noted. Bed in low and locked position, call light within reach, fall and safety precautions in place, will continue with plan of care.
[2020-06-10] MEDS ORDERED: PIPERACILLIN SODIUM/TAZOBACTAM 3.375 G in IV DEXTROSE 5% 50 ML IV ONE (04:30)
--- NOTE | 2020-06-10 05:09 | NUR ---
Asleep. HOB elevate. Breathing even and non labored. No facial grimacing noted. Kept comfortable. Call light within reach. Will continue to monitor.
[2020-06-10 05:42] VITALS: BP 101/40
[2020-06-10 07:03] LABS: BASOPHILS # (AUTO) 0.1 K/uL (0.0-8.0); BASOPHILS % (AUTO) 0.5 % (0.0-2.0); EOSINOPHILS # (AUTO) 0.1 K/uL (0.0-0.7); EOSINOPHILS % (AUTO) 0.6 % (0.0-7.0); HEMATOCRIT 28.3 % (31.2-41.9); HEMOGLOBIN 9.1 g/dL (10.9-14.3); LYMPHOCYTES # (AUTO) 1.7 K/uL (20.0-40.0); LYMPHOCYTES % (AUTO) 11.9 % (20.5-51.5); MEAN CORPUSCULAR HGB CONC 32 g/dL (32.3-35.6); MEAN CORPUSCULAR VOLUME 87.1 fL (75.5-95.3); MONOCYTES # (AUTO) 0.9 K/uL (2.0-10.0); MONOCYTES % (AUTO) 6.6 % (0.0-11.0); NEUTROPHILS # (AUTO) 11.3 K/uL (1.8-8.9); NEUTROPHILS % (AUTO) 80.4 % (38.5-71.5); PLATELET COUNT (AUTO) 244 K/uL (179-408); RED BLOOD CELL COUNT(AUTO) 3.24 MIL/uL (3.63-4.92); WHITE BLOOD COUNT (AUTO) 14.1 K/uL (3.8-11.8)
[2020-06-10 07:13] LABS: ALANINE AMINOTRANSFERASE 13 U/L (14-59); ALKALINE PHOSPHATASE 67 U/L (50-136); ASPARTATE AMINOTRANSFERASE 22 U/L (15-37); BILIRUBIN,TOTAL 0.5 mg/dL (0.2-1.0); CARBON DIOXIDE 20 mmol/L (21-32); CHLORIDE 104 mmol/L (98-107); CHOLESTEROL 98 mg/dL (<200); CREATININE 1.4 mg/dL (0.6-1.3); GLUCOSE 257 mg/dL (74-106); HDL CHOLESTEROL 63 mg/dL (40-60); MAGNESIUM 1.9 mg/dL (1.8-2.4); PHOSPHOROUS 4.5 mg/dL (2.5-4.9); POTASSIUM 5.3 mmol/L (3.5-5.1); TRIGLYCERIDES 47 MG/DL (30-150); UREA NITROGEN, BLOOD 39 mg/dL (7-18)
[2020-06-10 07:33] LABS: THYROID STIMULATING HORMONE 4.588 mIU/mL (0.358-3.740)
--- NOTE | 2020-06-10 07:46 | NUR ---
Awake and responsive to stimuli. On room air. No distress noted. Iv site intact and patent, tolerating IV hydration. Grubbs catheter intact, straw colored urine with sediments noted. No facial grimacing noted. Bed is low and locked. Call light within reach. Will continue to monitor.
[2020-06-10 08:14] VITALS: BP 120/62
[2020-06-10] MEDS: METOPROLOL SUCCINATE XL 50 MG TAB.SR.24H PO SCH (08:27)
[2020-06-10] MEDS: ASPIRIN 81 MG TAB.CHEW PO SCH (08:27)
[2020-06-10] MEDS: LOSARTAN POTASSIUM 50 MG TABLET PO SCH (08:28)
[2020-06-10] MEDS: AMLODIPINE 10 MG TABLET PO SCH (08:28)
[2020-06-10] MEDS: METFORMIN HCL 500 MG TABLET PO SCH ×3 (08:28→17:18)
[2020-06-10] MEDS: PIPERACILLIN SODIUM/TAZOBACTAM 3.375 G in IV DEXTROSE 5% 50 ML IV SCH ×3 (09:58→21:11)
[2020-06-10 11:00] VITALS: BP 99/72
--- NOTE | 2020-06-10 12:34 | NUR ---
WOUND CARE CONSULT: PT PRESENTS WITH RT HEEL INTACT DEEP TISSUE INJURY AND SACRAL SCARRING WITH INCONTINENCE ASSOCIATED SKIN DAMAGE OVER SCARRING, PRESENT ON ADMISSION. RECOMMENDATIONS MADE FOR SKIN PROTECTION AND WOUND CARE. DISCUSSED WITH NURSING STAFF. IN AGREEMENT WITH PLAN OF CARE. Addendum: 06/10/20 at 1236 by RADHA MCKEON RN Amended: Links added.
[2020-06-10 15:33] VITALS: BP 104/47
--- NOTE | 2020-06-10 19:01 | NUR ---
PATIENT IN BED RESPONSIVE TO STIMULI. IN NO ACUTE DISTRESS. ON [employer] MATTRESS TOLERATED. SEEN BY RADHA WOUND CARE WITH ORDERS. ON IV ATB ZOSYN AND VANCOMYCIN. NO ADVERSE REACTION NOTED. NEEDS ATTENDED. SAFETY MEASURES MAINTAINED. KEPT COMFORTABLE. CALL LIGHT WITHIN REACH. WILL CONTINUE TO MONITOR.
--- NOTE | 2020-06-10 19:45 | NUR ---
PATIENT AWAKE BUT WITH SOME CONFUSION, NO SOB NO CHEST PAIN. PATIENT WITH EPISODE OF RESTLESS WHILE IN BED, NO S/S OF PAIN AT THIS TIME,REDIRECT BEHAVIOR,TURN AND REPOSITION, MACDONALD CATH PATENT, CONT TO MONITOR
[2020-06-10 20:43] VITALS: BP 108/43
[2020-06-11 00:32] VITALS: BP 107/46
[2020-06-11] MEDS: ACETAMINOPHEN 325 MG TABLET PO PRN (02:42)
[2020-06-11 04:38] VITALS: BP 116/44
[2020-06-11] MEDS: PIPERACILLIN SODIUM/TAZOBACTAM 3.375 G in IV DEXTROSE 5% 50 ML IV SCH ×4 (04:50→21:17)
[2020-06-11] MEDS ORDERED: VANCOMYCIN IV 750 MG in IV DEXTROSE 5% 250 ML IV SCH (05:00)
--- NOTE | 2020-06-11 06:03 | NUR ---
PATIENT AWAKE NO SOB NO CHEST PAIN. PATIENT TELE MONITOR SINUS RHYTHM, WITH EPISODE OF NON COMPLIANT WITH CARE, CONT TO REORIENT PATIENT, KEPT COMFORTABLE.
[2020-06-11 06:28] LABS: BASOPHILS # (AUTO) 0.1 K/uL (0.0-8.0); BASOPHILS % (AUTO) 0.8 % (0.0-2.0); EOSINOPHILS # (AUTO) 0.1 K/uL (0.0-0.7); EOSINOPHILS % (AUTO) 1.5 % (0.0-7.0); HEMATOCRIT 31.3 % (31.2-41.9); LYMPHOCYTES # (AUTO) 1.6 K/uL (20.0-40.0); LYMPHOCYTES % (AUTO) 16.4 % (20.5-51.5); MEAN CORPUSCULAR HGB CONC 32 g/dL (32.3-35.6); MEAN CORPUSCULAR VOLUME 84.8 fL (75.5-95.3); MONOCYTES # (AUTO) 0.5 K/uL (2.0-10.0); MONOCYTES % (AUTO) 5.7 % (0.0-11.0); NEUTROPHILS # (AUTO) 7.2 K/uL (1.8-8.9); NEUTROPHILS % (AUTO) 75.6 % (38.5-71.5); PLATELET COUNT (AUTO) 273 K/uL (179-408); RED BLOOD CELL COUNT(AUTO) 3.69 MIL/uL (3.63-4.92); WHITE BLOOD COUNT (AUTO) 9.5 K/uL (3.8-11.8)
[2020-06-11 06:41] LABS: CREATININE 1.1 mg/dL (0.6-1.3); MAGNESIUM 1.7 mg/dL (1.8-2.4); PHOSPHOROUS 2.9 mg/dL (2.5-4.9); POTASSIUM 4.4 mmol/L (3.5-5.1)
--- NOTE | 2020-06-11 07:56 | NUR ---
Patient is asleep but arousable to name. No respiratory distress noted. No facial grimacing. IV site on RFA intact hydration tolerated. Bed is low and locked. Safety measures maintained. Kept comfortable. Call light within reach. Will continue to monitor.
[2020-06-11] MEDS: AMLODIPINE 10 MG TABLET PO SCH (08:33)
[2020-06-11] MEDS: LOSARTAN POTASSIUM 50 MG TABLET PO SCH (08:33)
[2020-06-11] MEDS: METFORMIN HCL 500 MG TABLET PO SCH ×3 (08:33→17:15)
[2020-06-11] MEDS: METOPROLOL SUCCINATE XL 50 MG TAB.SR.24H PO SCH (08:33)
[2020-06-11] MEDS: ASPIRIN 81 MG TAB.CHEW PO SCH (08:33)
[2020-06-11 11:09] VITALS: BP 122/50
[2020-06-11] MEDS: MAGNESIUM SULFATE/D5W 100 ML IV SCH ×2 (11:10→12:19)
--- NOTE | 2020-06-11 12:15 | NUR ---
Spoke to son Victor M and updated on patient's condition. He was appreciative.
[2020-06-11 15:18] VITALS: BP 117/71
--- NOTE | 2020-06-11 19:23 | NUR ---
Alert and responsive to name. No resp distress. IV hydration tolerated. Grubbs catheter draining yellow urine. On IV Zosyn and Vancomycin. No adverse reaction noted. Made bm today and treatment done. Patient kept comfortable. Will endorse accordingly.
[2020-06-11 20:15] VITALS: BP 133/79
[2020-06-11] MEDS: IV NS 1000 ML 1,000 ML IV PRN (23:28)
[2020-06-12 00:03] VITALS: BP 127/43
[2020-06-12 04:12] VITALS: BP 138/43
[2020-06-12] MEDS: PIPERACILLIN SODIUM/TAZOBACTAM 3.375 G in IV DEXTROSE 5% 50 ML IV SCH ×2 (04:15→10:02)
--- NOTE | 2020-06-12 06:35 | NUR ---
Patient slept intermittently.Confused. No acute distress noted. On RA.HOB elevated.Aspiration precaution observed at all times. Grubbs catheter in place draining well. Iv on right FA 22g patent and intact with NS at 75 cc/hr.Adm IV ATB for UTI as ordered. No a/r noted. Tolerated well. Wound care done. Will endorse to oncoming shift.
[2020-06-12 06:42] LABS: BASOPHILS # (AUTO) 0.1 K/uL (0.0-8.0); BASOPHILS % (AUTO) 0.7 % (0.0-2.0); EOSINOPHILS # (AUTO) 0.2 K/uL (0.0-0.7); HEMATOCRIT 32.5 % (31.2-41.9); HEMOGLOBIN 10.5 g/dL (10.9-14.3); LYMPHOCYTES # (AUTO) 1.4 K/uL (20.0-40.0); LYMPHOCYTES % (AUTO) 17.4 % (20.5-51.5); MEAN CORPUSCULAR HEMOGLOBIN 27.3 uug (24.7-32.8); MEAN CORPUSCULAR HGB CONC 32 g/dL (32.3-35.6); MEAN CORPUSCULAR VOLUME 84.3 fL (75.5-95.3); MONOCYTES # (AUTO) 0.5 K/uL (2.0-10.0); MONOCYTES % (AUTO) 5.5 % (0.0-11.0); NEUTROPHILS # (AUTO) 6.2 K/uL (1.8-8.9); NEUTROPHILS % (AUTO) 74.4 % (38.5-71.5); PLATELET COUNT (AUTO) 284 K/uL (179-408); RED BLOOD CELL COUNT(AUTO) 3.85 MIL/uL (3.63-4.92); WHITE BLOOD COUNT (AUTO) 8.3 K/uL (3.8-11.8)
[2020-06-12 07:41] LABS: CREATININE 0.9 mg/dL (0.6-1.3); MAGNESIUM 1.9 mg/dL (1.8-2.4); POTASSIUM 4.4 mmol/L (3.5-5.1)
[2020-06-12] MEDS: METFORMIN HCL 500 MG TABLET PO SCH ×3 (08:36→16:57)
[2020-06-12] MEDS: ASPIRIN 81 MG TAB.CHEW PO SCH (08:37)
[2020-06-12] MEDS: LOSARTAN POTASSIUM 50 MG TABLET PO SCH (09:17)
[2020-06-12] MEDS: METOPROLOL SUCCINATE XL 50 MG TAB.SR.24H PO SCH (09:18)
[2020-06-12] MEDS: AMLODIPINE 10 MG TABLET PO SCH (09:18)
[2020-06-12 09:48] LABS: BILIRUBIN,DIRECT 0.1 mg/dL (0.0-0.2); BILIRUBIN,TOTAL 0.4 mg/dL (0.2-1.0)
[2020-06-12 11:16] VITALS: BP 108/43
[2020-06-12] MEDS: IV NS 1000 ML 1,000 ML IV PRN (12:42)
[2020-06-12] MEDS ORDERED: PIPERACILLIN SODIUM/TAZOBACTAM 3.37 G in IV DEXTROSE 5% 100 ML IV SCH (14:00)
[2020-06-12] MEDS: ACETAMINOPHEN 325 MG TABLET PO PRN ×2 (15:12→20:54)
[2020-06-12 16:01] VITALS: BP 121/33
[2020-06-12] MEDS: GLUCERNA SHAKE VANILLA 237 ML CAN PO SCH (16:58)
[2020-06-12] MEDS ORDERED: VANCOMYCIN IV 750 MG in IV DEXTROSE 5% 250 ML IV SCH (18:00)
--- NOTE | 2020-06-12 18:10 | NUR ---
pt alert to self with episode of confusion. no SOB noted, on pureed diet able to eat breakfast, lunch, and dinner 100% with assistance. have infante cath- intact, urine drain by gravity, clear and yellow. lactic acid is 2.1. pt was reposition every Q2h and as needed. good laurence care done. wound care was done, mepilex and z-guard administered. continue with IV ATB and NS at 75 cc/hr, IV site intact no edema or redness. needs attended to and met. will continue to monitor.
[2020-06-12 20:15] VITALS: BP 135/61
[2020-06-12] MEDS: NITROFURANTOIN/NITROFURAN MAC 100 MG CAPSULE PO SCH (20:53)
[2020-06-12] MEDS ORDERED: SULFAMETHOXAZOL/TRIMETHOPRI IV 20 ML in IV DEXTROSE 5% 500 ML IV SCH (21:00)
[2020-06-13] VITALS: BP 115/94
[2020-06-13] MEDS: IV NS 1000 ML 1,000 ML IV PRN (04:01)
[2020-06-13 04:15] VITALS: BP 138/32
--- NOTE | 2020-06-13 06:34 | NUR ---
PT SLEPT INTERMITTENTLY. PT IN NO ACUTE DISTRESS. IV INTACT. TYLENOL PRN GIVEN AT 2053H FOR GENERALIZED PAIN. PT TURNED AND REPOSITIONED Q2H. WOUND TREATMENT DONE. PT TOLERATED IT WELL. PT SOMETIMES COMBATIVE WHEN CHANGING THE DIAPER AND POSITION OF THE PT. SAFETY AND COMFORT PROVIDED.. ALL NEEDS ARE MET. WILL ENDORSE TO INCOMING NURSE FOR CONTINUITY OF CARE.
[2020-06-13] MEDS: METFORMIN HCL 500 MG TABLET PO SCH ×2 (07:59→12:33)
[2020-06-13] MEDS: ASPIRIN 81 MG TAB.CHEW PO SCH (08:00)
[2020-06-13] MEDS: NITROFURANTOIN/NITROFURAN MAC 100 MG CAPSULE PO SCH ×2 (08:01→20:40)
[2020-06-13] MEDS: AMLODIPINE 10 MG TABLET PO SCH (08:01)
[2020-06-13] MEDS: METOPROLOL SUCCINATE XL 50 MG TAB.SR.24H PO SCH (08:01)
[2020-06-13] MEDS: GLUCERNA SHAKE VANILLA 237 ML CAN PO SCH ×2 (08:02→17:04)
[2020-06-13] MEDS: LOSARTAN POTASSIUM 50 MG TABLET PO SCH (08:02)
[2020-06-13 08:14] VITALS: BP 162/65
--- NOTE | 2020-06-13 12:30 | NUR ---
TAKING OVER CARE FOR THIS PT. IN NO ACUTE DISTRESS WAITING FOR IV NURSE TO START THE MIDLINE
[2020-06-13 14:10] LABS: BASOPHILS % (AUTO) 0.4 % (0.0-2.0); EOSINOPHILS # (AUTO) 0.2 K/uL (0.0-0.7); EOSINOPHILS % (AUTO) 1.4 % (0.0-7.0); HEMATOCRIT 35.7 % (31.2-41.9); HEMOGLOBIN 11.2 g/dL (10.9-14.3); LYMPHOCYTES # (AUTO) 0.7 K/uL (20.0-40.0); LYMPHOCYTES % (AUTO) 6.6 % (20.5-51.5); MEAN CORPUSCULAR HGB CONC 31 g/dL (32.3-35.6); MEAN CORPUSCULAR VOLUME 86.3 fL (75.5-95.3); MONOCYTES # (AUTO) 0.6 K/uL (2.0-10.0); MONOCYTES % (AUTO) 4.9 % (0.0-11.0); NEUTROPHILS # (AUTO) 9.8 K/uL (1.8-8.9); NEUTROPHILS % (AUTO) 86.7 % (38.5-71.5); PLATELET COUNT (AUTO) 310 K/uL (179-408); RED BLOOD CELL COUNT(AUTO) 4.14 MIL/uL (3.63-4.92); WHITE BLOOD COUNT (AUTO) 11.3 K/uL (3.8-11.8)
[2020-06-13 14:16] LABS: MAGNESIUM 1.7 mg/dL (1.8-2.4); POTASSIUM 4.3 mmol/L (3.5-5.1)
[2020-06-13] MEDS ORDERED: IV NORMAL SALINE 500 ML IV ONE (15:00)
[2020-06-13] MEDS ORDERED: INSULIN LISPRO 300 UNIT/3 ML VIAL SQ SCH (15:00)
[2020-06-13] MEDS ORDERED: INSULIN REGULAR, HUMAN 300 UNIT/3 ML VIAL SQ ONE (15:00)
[2020-06-13] MEDS ORDERED: DEXTROSE 50% 50 ML DISP.SYRIN IV PRN (15:00)
[2020-06-13 15:20] VITALS: BP 128/75
[2020-06-13] MEDS: BLOOD SUGAR DIAGNOSTIC 1 EACH STRIP VI SCH ×2 (17:03→20:40)
[2020-06-13] MEDS: INSULIN REGULAR, HUMAN 300 UNIT/3 ML VIAL SQ PRN ×2 (17:11→20:42)
--- NOTE | 2020-06-13 19:30 | NUR ---
Received patient lying in bed. Alert but disoriented and non-verbal. In no acute distress. No signs or symptoms of pain or SOB. Sinus tachy on tele at 108. Iv site on left FA intact and patent. IVF infusing. Safety measure initiated and call king within reached. Continue to monitor.
[2020-06-13 20:15] VITALS: BP 132/51
[2020-06-14] VITALS: BP 133/69
[2020-06-14] MEDS: IV NS 1000 ML 1,000 ML IV PRN ×2 (02:02→17:15)
[2020-06-14 04:00] VITALS: BP 116/62
--- NOTE | 2020-06-14 06:06 | NUR ---
Slept through out the night. Appears comfortable. In no acute distress. VS WNL. No signs or symptoms of pain or SOB. SR and Sinus tachy on tele at 102. IV site on left FA intact and patent. IVF infusing. Needs assessed and attended to. Safety measure maintained and call king within reached.
--- NOTE | 2020-06-14 06:07 | NUR ---
Grubbs catheter remains intact and draining via gravity.
[2020-06-14 06:35] LABS: BASOPHILS % (AUTO) 0.4 % (0.0-2.0); EOSINOPHILS # (AUTO) 0.1 K/uL (0.0-0.7); HEMATOCRIT 28.1 % (31.2-41.9); HEMOGLOBIN 9.3 g/dL (10.9-14.3); LYMPHOCYTES # (AUTO) 0.8 K/uL (20.0-40.0); LYMPHOCYTES % (AUTO) 7.3 % (20.5-51.5); MEAN CORPUSCULAR HEMOGLOBIN 28.2 uug (24.7-32.8); MEAN CORPUSCULAR HGB CONC 33 g/dL (32.3-35.6); MEAN CORPUSCULAR VOLUME 84.9 fL (75.5-95.3); MONOCYTES # (AUTO) 0.6 K/uL (2.0-10.0); MONOCYTES % (AUTO) 5.9 % (0.0-11.0); NEUTROPHILS # (AUTO) 9.2 K/uL (1.8-8.9); NEUTROPHILS % (AUTO) 85.4 % (38.5-71.5); PLATELET COUNT (AUTO) 250 K/uL (179-408); RED BLOOD CELL COUNT(AUTO) 3.31 MIL/uL (3.63-4.92); WHITE BLOOD COUNT (AUTO) 10.8 K/uL (3.8-11.8)
[2020-06-14 06:43] LABS: MAGNESIUM 1.4 mg/dL (1.8-2.4); POTASSIUM 3.4 mmol/L (3.5-5.1)
[2020-06-14] MEDS: BLOOD SUGAR DIAGNOSTIC 1 EACH STRIP VI SCH ×4 (06:44→20:39)
[2020-06-14 07:34] VITALS: BP 130/60
[2020-06-14] MEDS: NITROFURANTOIN/NITROFURAN MAC 100 MG CAPSULE PO SCH ×2 (08:42→20:40)
[2020-06-14] MEDS: AMLODIPINE 10 MG TABLET PO SCH (08:42)
[2020-06-14] MEDS: METOPROLOL SUCCINATE XL 50 MG TAB.SR.24H PO SCH (08:42)
[2020-06-14] MEDS: LOSARTAN POTASSIUM 50 MG TABLET PO SCH (08:42)
[2020-06-14] MEDS: GLUCERNA SHAKE VANILLA 237 ML CAN PO SCH ×2 (08:43→17:10)
[2020-06-14] MEDS: INSULIN REGULAR, HUMAN 300 UNIT/3 ML VIAL SQ PRN ×4 (08:46→20:40)
[2020-06-14] MEDS ORDERED: MAGNESIUM OXIDE 400 MG TABLET PO ONE (10:00)
[2020-06-14] MEDS ORDERED: POTASSIUM CHLORIDE 20 MEQ TAB.PRT.SR PO SCH (10:00)
[2020-06-14] MEDS: ASPIRIN 81 MG TAB.CHEW PO SCH (10:30)
[2020-06-14 15:12] VITALS: BP 130/52
[2020-06-14] MEDS: ENOXAPARIN SODIUM 40 MG/0.4 ML DISP.SYRIN SQ SCH (15:37)
--- NOTE | 2020-06-14 19:30 | NUR ---
Received patient lying in bed. Alert but disoriented and non-verbal. In no apparent distress. Appears comfortable. No signs or symptoms of pain or SOB. IV site on left FA intact and patent. IVF infusing. Safety measure initiated and call king within reached. Continue to monitor.
[2020-06-14 20:17] VITALS: BP 118/61
[2020-06-14] MEDS: ACETAMINOPHEN 325 MG TABLET PO PRN (20:40)
[2020-06-15 04:27] VITALS: BP 144/58
--- NOTE | 2020-06-15 06:04 | NUR ---
Appears calm and comfortable. In no acute distress. No signs or symptoms of pain or SOB. IV site on left FA remains intact and patent. IVF infusing. Needs anticipated to and met. Safety measure maintained and call king within reached.
[2020-06-15 07:09] LABS: CREATININE 0.9 mg/dL (0.6-1.3); MAGNESIUM 1.8 mg/dL (1.8-2.4); POTASSIUM 3.8 mmol/L (3.5-5.1)
[2020-06-15] MEDS: IV NS 1000 ML 1,000 ML IV PRN (07:22)
[2020-06-15 07:35] LABS: BASOPHILS # (AUTO) 0.1 K/uL (0.0-8.0); BASOPHILS % (AUTO) 0.6 % (0.0-2.0); EOSINOPHILS # (AUTO) 0.2 K/uL (0.0-0.7); EOSINOPHILS % (AUTO) 1.5 % (0.0-7.0); LYMPHOCYTES % (AUTO) 6.6 % (20.5-51.5); MEAN CORPUSCULAR HEMOGLOBIN 27.5 uug (24.7-32.8); MEAN CORPUSCULAR HGB CONC 32 g/dL (32.3-35.6); MEAN CORPUSCULAR VOLUME 85.8 fL (75.5-95.3); MONOCYTES # (AUTO) 0.6 K/uL (2.0-10.0); MONOCYTES % (AUTO) 4.4 % (0.0-11.0); NEUTROPHILS # (AUTO) 12.9 K/uL (1.8-8.9); NEUTROPHILS % (AUTO) 86.9 % (38.5-71.5); PLATELET COUNT (AUTO) 291 K/uL (179-408); RED BLOOD CELL COUNT(AUTO) 3.62 MIL/uL (3.63-4.92)
[2020-06-15 07:37] LABS: HEMATOCRIT 31.1 % (31.2-41.9); WHITE BLOOD COUNT (AUTO) 14.9 K/uL (3.8-11.8)
[2020-06-15 08:03] VITALS: BP 124/47
[2020-06-15] MEDS: BLOOD SUGAR DIAGNOSTIC 1 EACH STRIP VI SCH ×4 (08:13→20:05)
--- NOTE | 2020-06-15 08:16 | NUR ---
BLOOD SUGAR 230 COVERED WITH 4U HUMULIN DOUBLE CHECKED WITH ОЛЬГА CHAVEZ
[2020-06-15] MEDS ORDERED: INSULIN REGULAR, HUMAN 300 UNITS/3 ML VIAL SQ PRN (08:45)
[2020-06-15] MEDS ORDERED: IV 1/2NS 1000 ML 1,000 ML IV PRN (09:15)
[2020-06-15] MEDS: ASPIRIN 81 MG TAB.CHEW PO SCH (10:10)
[2020-06-15] MEDS: NITROFURANTOIN/NITROFURAN MAC 100 MG CAPSULE PO SCH ×2 (10:10→20:04)
[2020-06-15] MEDS: LOSARTAN POTASSIUM 50 MG TABLET PO SCH (10:11)
[2020-06-15] MEDS: AMLODIPINE 10 MG TABLET PO SCH (10:12)
[2020-06-15] MEDS: GLUCERNA SHAKE VANILLA 237 ML CAN PO SCH ×2 (10:12→16:55)
[2020-06-15] MEDS: METOPROLOL SUCCINATE XL 50 MG TAB.SR.24H PO SCH (10:13)
[2020-06-15] MEDS: ENOXAPARIN SODIUM 40 MG/0.4 ML DISP.SYRIN SQ SCH (10:14)
[2020-06-15] MEDS: INSULIN REGULAR, HUMAN 300 UNIT/3 ML VIAL SQ PRN ×2 (11:54→17:03)
--- NOTE | 2020-06-15 19:30 | NUR ---
Received patient lying in bed. AAOx1, mainly confused and disoriented, Speaks a 1-2 words at time. No signs or symptoms of pain or SOB noted. IV site on left FA intact and patent. IVF infusing. Grubbs catheter intact and draining via gravity. Safety measure initiated and call king within reached.
[2020-06-15] MEDS: ACETAMINOPHEN 325 MG TABLET PO PRN (20:04)
[2020-06-15 20:11] VITALS: BP 136/63
[2020-06-16 04:45] VITALS: BP 149/65
--- NOTE | 2020-06-16 05:48 | NUR ---
Patient asleep at this time but easily arouse to verabl stimuli. No signs or symptoms of pain or SOB. Appears comfortable. IV site on left FA intact and patent. IVF infusing. No adverse reaction noted from PO ABX. Grubbs catheter remains intact and draining via gravity. Kept clean and dry. Needs anticipate to and met. Safety measure maintained.
[2020-06-16] MEDS: BLOOD SUGAR DIAGNOSTIC 1 EACH STRIP VI SCH ×3 (06:33→11:44)
[2020-06-16 07:23] LABS: CREATININE 0.9 mg/dL (0.6-1.3); MAGNESIUM 1.9 mg/dL (1.8-2.4); POTASSIUM 3.4 mmol/L (3.5-5.1)
[2020-06-16 07:35] LABS: BASOPHILS % (AUTO) 0.3 % (0.0-2.0); EOSINOPHILS # (AUTO) 0.2 K/uL (0.0-0.7); EOSINOPHILS % (AUTO) 2.2 % (0.0-7.0); HEMATOCRIT 30.5 % (31.2-41.9); HEMOGLOBIN 9.6 g/dL (10.9-14.3); LYMPHOCYTES # (AUTO) 0.7 K/uL (20.0-40.0); LYMPHOCYTES % (AUTO) 6.6 % (20.5-51.5); MEAN CORPUSCULAR HEMOGLOBIN 26.8 uug (24.7-32.8); MEAN CORPUSCULAR HGB CONC 31 g/dL (32.3-35.6); MEAN CORPUSCULAR VOLUME 85.4 fL (75.5-95.3); MONOCYTES # (AUTO) 0.5 K/uL (2.0-10.0); MONOCYTES % (AUTO) 4.8 % (0.0-11.0); NEUTROPHILS # (AUTO) 8.6 K/uL (1.8-8.9); NEUTROPHILS % (AUTO) 86.1 % (38.5-71.5); PLATELET COUNT (AUTO) 267 K/uL (179-408); RED BLOOD CELL COUNT(AUTO) 3.57 MIL/uL (3.63-4.92)
[2020-06-16 08:52] VITALS: BP 146/66
[2020-06-16] MEDS: INSULIN REGULAR, HUMAN 300 UNIT/3 ML VIAL SQ PRN ×3 (09:17→16:53)
[2020-06-16] MEDS: ENOXAPARIN SODIUM 40 MG/0.4 ML DISP.SYRIN SQ SCH (09:18)
[2020-06-16] MEDS: AMLODIPINE 10 MG TABLET PO SCH (09:19)
[2020-06-16] MEDS: LOSARTAN POTASSIUM 50 MG TABLET PO SCH (09:20)
[2020-06-16] MEDS: NITROFURANTOIN/NITROFURAN MAC 100 MG CAPSULE PO SCH (09:20)
[2020-06-16] MEDS: ASPIRIN 81 MG TAB.CHEW PO SCH (09:20)
[2020-06-16] MEDS: GLUCERNA SHAKE VANILLA 237 ML CAN PO SCH ×2 (09:21→16:59)
[2020-06-16] MEDS: METOPROLOL SUCCINATE XL 50 MG TAB.SR.24H PO SCH (09:21)
[2020-06-16] MEDS ORDERED: POTASSIUM CHLORIDE 20 MEQ TAB.PRT.SR PO SCH (09:30)
[2020-06-16] MEDS: POTASSIUM CHLORIDE 50 ML IV SCH ×2 (12:54→13:51)
[2020-06-16] MEDS ORDERED: NITR100C11 PO (14:12)
--- NOTE | 2020-06-16 14:46 | NUR ---
F/C D/C ORDERED FOR D/C TO WELL REMOVED INTACT. SHE HAS URINATED ON HER OWN 300 ML. REMOVED 900ML FROM [facility].
[2020-06-16 16:26] VITALS: BP 126/29
[2020-06-16] MEDS ORDERED: NITROFURANTOIN/NITROFURAN MAC 100 MG CAPSULE PO ONE (17:00)
[2020-06-16 17:03] VITALS: BP 135/61
--- NOTE | 2020-06-16 18:44 | NUR ---
D/C TO HOME VIA AMBULANCE. SPOKE WITH SON OVER THE PHONE D/C INSTRUCTIONS GIVEN REGARDING MEDS AND WHAT IS IN THE D/C PACKET. EXPLAIN TO HIM TO CONTINUE REGULAR HOME MEDS AND THE ATB FOR 7 MORE DAYS AND TO PICK IT UP FROM THE PHARMACY ON FILE. VERBALIZED UNDERSTANDING. VSS
[2020-06-17] MEDS ORDERED: NITROFURANTOIN/NITROFURAN MAC 100 MG CAPSULE PO SCH (09:00)
== END 2020-06-16 17:30 | disposition home health service (06) | DRG 871 ==
LOC: ER 20:55 → TELE3 06-10 02:17 → MEDSURG3 06-14 14:15
PROVIDERS: ADMIT Internal Medicine; ATTEND Nurse Practitioner Family
DX: A41.9 Sepsis, unspecified organism (principal); N17.0 Acute kidney failure with tubular necrosis; E43 Unspecified severe protein-calorie malnutrition; G92 Toxic encephalopathy; N39.0 Urinary tract infection, site not specified; Z16.12 Extended spectrum beta lactamase (ESBL) resistance; E87.2 Acidosis; Z68.1 Body mass index [BMI] 19.9 or less, adult; Z20.822 Contact with and (suspected) exposure to COVID-19; B96.20 Unspecified Escherichia coli [E. coli] as the cause of diseases classified elsewhere; B95.1 Streptococcus, group B, as the cause of diseases classified elsewhere; D64.9 Anemia, unspecified; Z79.82 Long term (current) use of aspirin; Z87.440 Personal history of urinary (tract) infections; M19.90 Unspecified osteoarthritis, unspecified site; I10 Essential (primary) hypertension; F03.90 Unspecified dementia, unspecified severity, without behavioral disturbance, psychotic disturbance, mood disturbance, and anxiety; I25.10 Atherosclerotic heart disease of native coronary artery without angina pectoris; K52.9 Noninfective gastroenteritis and colitis, unspecified; E88.09 Other disorders of plasma-protein metabolism, not elsewhere classified; R53.1 Weakness; E11.9 Type 2 diabetes mellitus without complications; Z79.84 Long term (current) use of oral hypoglycemic drugs; E78.5 Hyperlipidemia, unspecified; N31.9 Neuromuscular dysfunction of bladder, unspecified
CPT/HCPCS: 36415; 70030-TC; 70450; 71045; 83605; 83735; 84100; 84443; 85025; 87040; 87077; 87086; 93005; A4663; G0378; J1650; J1815; J2543; J3370; J3475; J3480; J7030; J7060

== ENCOUNTER 2020-09-12 09:40 | Inpatient (IN) | payer MEDICARE, OTHER ==
[~2020-09-12] VITALS: Ht 152.4 cm; Wt 47.7 kg
[~2020-09-12 09:40] MED LIST changes: +NITR100C11 PO
--- NOTE | 2020-09-12 09:45 | NUR ---
There is no information about current home medications available at this time, per EMT pt's son stated he will be coming to the ER with further information.
[2020-09-12 10:20] LABS: HEMATOCRIT 28.3 % (31.2-41.9); MEAN CORPUSCULAR HEMOGLOBIN 25.7 uug (24.7-32.8); MEAN CORPUSCULAR VOLUME 79.6 fL (75.5-95.3); PLATELET COUNT (AUTO) 458 K/uL (179-408)
[2020-09-12] MEDS ORDERED: ONDANSETRON 4 MG/2 ML VIAL ONE (10:21)
[2020-09-12] MEDS ORDERED: MORPHINE SULFATE 2 MG/1 ML DISP.SYRIN ONE (10:21)
[2020-09-12 10:25] LABS: CREATININE 0.9 mg/dL (0.6-1.3); POTASSIUM 3.8 mmol/L (3.5-5.1)
[2020-09-12 10:37] LABS: BILIRUBIN,DIRECT 0.1 mg/dL (0.0-0.2); BILIRUBIN,TOTAL 0.2 mg/dL (0.2-1.0); TOTAL PROTEIN, SERUM 8.1 g/dL (6.4-8.2)
[2020-09-12] MEDS ORDERED: MORPHINE SULFATE 2 MG/1 ML DISP.SYRIN IV ONE (10:45)
[2020-09-12] MEDS ORDERED: ONDANSETRON 4 MG/2 ML VIAL IV ONE (10:45)
[2020-09-12 10:51] LABS: *BILIRUBIN,URIN NEGATIVE (NEGATIVE); *BLOOD, URINE 2+ (NEGATIVE); *CLARITY,URINE CLOUDY (CLEAR); *COLOR,URINE YELLOW (YELLOW); *KETONES,URINE NEGATIVE (NEGATIVE); *UROBILINOGEN,URINE 0.2 E.U./dl (NORMAL); LEUKOCYTE ESTERASE ,URINE 3+ (NEGATIVE); NITRITE, URINE POSITIVE (NEGATIVE); UGLUCOSE NEGATIVE (NEGATIVE)
--- NOTE | 2020-09-12 11:11 | NUR ---
DANIEL CHERY, PT'S SON, [phone] CALLED AND SAID: PT IS UNDER CARE OF DR. CASSANDRA EVANS AT [facility], FOR WOUND MANAGEMENT, [phone] PT IS ABLE TO SWALLOW PILLS IF CRUSHED AND MIXED WITH APPLE SAUCE, PT CAN HAVE SOFT FOOD WITH ASSISSTANCE, PT IS FULL CODE. Addendum: 09/12/20 at 1200 by SPOURMANSO THE SON ALSO MENTIONED THAT PT'S SUGAR SPIKED AST NIGHT AND THAT IS USUALLY THE INDICATION THAT PT HAS UTI. Addendum: 09/12/20 at 1222 by SPOURMANSO PT' ZAKI ALSO MENTIONED THAT THE PT TAKES EXACTLY THE SAME MEDS THE LAST VISIT.
[2020-09-12] MEDS ORDERED: CEFTRIAXONE 1 G in IV DEXTROSE 5% 50 ML IV ONE (11:15)
[2020-09-12] MEDS ORDERED: CEFTRIAXONE /D5W 50ML IVPB **ER PYXIS IV ONE (11:28)
--- NOTE | 2020-09-12 12:04 | NUR ---
PT RESTING, NO SIGN OF DISTRESS, EASILY AROUSABLE, PT ON MONITOR, RA SAT 100%, HR 72.BREATHING 16.
[2020-09-12] MEDS ORDERED: IV NORMAL SALINE 250 ML IV ONE (12:15)
--- NOTE | 2020-09-12 12:40 | NUR ---
HENRI MESA DNP, REQUESTING TO D/C THE PT HOME WITH ANTIBIOTICS AND FOLLOW UP WITH PMD.
--- NOTE | 2020-09-12 12:43 | NUR ---
CHOLO FLOWERS TALKING TO PS SONDANIEL OVER THE PHONE.
--- NOTE | 2020-09-12 12:58 | NUR ---
PT REQUESTING THE PT TO BE ADMIITED, BECAUSE THE LAST TIME, PO ANTIBIOTICS AT HOME DID NOT HELP. ER TALKED TO HENRI MESA DNP. HENRI MESA AGREED TO ADMIT THE PT IN HOSPITAL.
[2020-09-12 13:27] LABS: BACTERIA,URINE MANY /HPF (NONE SEEN); WBC,URINE TNTC /HPF (0-3)
[2020-09-12 13:28] LABS: SQUAMOUS EPITHELIAL CELL,UR FEW /HPF (NONE SEEN)
--- NOTE | 2020-09-12 13:59 | NUR ---
PT TRANSFERED TO OR IN STABLE CONDITION.
--- NOTE | 2020-09-12 14:10 | NUR ---
Pt received via [employer]. Pt is AOx1, to self. V/S stable on room air. Pt has indwelling urinary catheter, draining well. PIV LAC 20G intact. Pt is noted to have pressure sores on bilateral heels and full thickness skin loss in L.hip. Photos on pt chart. Safety measures in place. Call light within reach. Will continue with the plan of care.
[2020-09-12 15:20] VITALS: BP 132/51
[2020-09-12] MEDS ORDERED: Z GUARD REMEDY PASTE 57 GM TUBE TOP PRN (17:30)
[2020-09-12] MEDS ORDERED: ONDANSETRON 4 MG/2 ML VIAL IV PRN (17:30)
[2020-09-12] MEDS: BLOOD SUGAR DIAGNOSTIC 1 EACH STRIP VI SCH (18:41)
[2020-09-12] MEDS: METFORMIN HCL 500 MG TABLET PO SCH (18:41)
[2020-09-12] MEDS: NITROFURANTOIN/NITROFURAN MAC 100 MG CAPSULE PO SCH (20:19)
[2020-09-12] MEDS: ATORVASTATIN 40 MG TABLET PO SCH (20:19)
[2020-09-12] MEDS: ENOXAPARIN SODIUM 40 MG/0.4 ML DISP.SYRIN SQ SCH (20:21)
[2020-09-12] MEDS: INSULIN GLARGINE,HUM 300 UNITS/3 ML CARTRIDGE SQ SCH (20:22)
[2020-09-12 20:25] VITALS: BP 134/105
[2020-09-13] MEDS: BLOOD SUGAR DIAGNOSTIC 1 EACH STRIP VI SCH ×5 (00:50→23:48)
--- NOTE | 2020-09-13 01:05 | NUR ---
Patient's blood sugar was 63. No distress noted. Patient awake in bed. Given snacks and orange juice, will reassess.
[2020-09-13 04:35] VITALS: BP 152/53
--- NOTE | 2020-09-13 05:34 | NUR ---
Pt slept intermittently throughout the night. No distress noted. Tolerated all medications given. IV site intact. Grubbs draining and patent. Safety and comfort provided. No other issues or concerns at this time, will endorse to day shift.
[2020-09-13 06:14] LABS: HEMATOCRIT 29.6 % (31.2-41.9); MEAN CORPUSCULAR HEMOGLOBIN 24.7 uug (24.7-32.8); PLATELET COUNT (AUTO) 456 K/uL (179-408)
[2020-09-13] MEDS: INSULIN REGULAR, HUMAN 300 UNIT/3 ML VIAL SQ PRN (06:19)
[2020-09-13 06:47] LABS: BILIRUBIN,TOTAL 0.3 mg/dL (0.2-1.0); MAGNESIUM 1.6 mg/dL (1.8-2.4); PHOSPHOROUS 2.8 mg/dL (2.5-4.9); POTASSIUM 3.8 mmol/L (3.5-5.1); TOTAL PROTEIN, SERUM 7.7 g/dL (6.4-8.2)
--- NOTE | 2020-09-13 08:05 | NUR ---
Pt received to care in her bed, awake, A/Ox0. Pt is fidgeting in bed, but unable to move. Pt's legs are contracted. Wound on left buttock is noted. Redness on heals. Pt is able to take medications crushed with apple sauce. Side rails are up and comfort measures are taken,.
[2020-09-13] MEDS: LOSARTAN POTASSIUM 50 MG TABLET PO SCH (09:12)
[2020-09-13] MEDS: ASPIRIN 81 MG TAB.CHEW PO SCH (09:12)
[2020-09-13] MEDS: METFORMIN HCL 500 MG TABLET PO SCH ×3 (09:12→18:12)
[2020-09-13] MEDS: METOPROLOL SUCCINATE XL 50 MG TAB.SR.24H PO SCH (09:13)
[2020-09-13] MEDS: AMLODIPINE 10 MG TABLET PO SCH (09:13)
--- NOTE | 2020-09-13 10:59 | NUR ---
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 SURGICAL ANDS DPM CONSULTS MADE TO DR RAMIRES AND DR BECERRA. RECOMMENDATIONS MADE FOR WOUND CARE AND SKIN PROTECTION. DISCUSSED WITH NURSING STAFF. MD IN AGREEMENT WITH PLAN OF CARE.
[2020-09-13] MEDS ORDERED: MAGNESIUM OXIDE 400 MG TABLET PO ONE (11:15)
[2020-09-13 11:48] VITALS: BP 96/45
[2020-09-13] MEDS: CEFTRIAXONE 1 G in IV DEXTROSE 5% 50 ML IV SCH (11:56)
[2020-09-13] MEDS: SODIUM HYPOCHLORITE 0.125% (QUARTER STRENGTH) 473 ML BOTTLE TP SCH (15:52)
[2020-09-13 16:08] VITALS: BP 111/41
[2020-09-13 20:35] VITALS: BP 107/41
[2020-09-13] MEDS: INSULIN GLARGINE,HUM 300 UNITS/3 ML CARTRIDGE SQ SCH (21:00)
[2020-09-13] MEDS: NITROFURANTOIN/NITROFURAN MAC 100 MG CAPSULE PO SCH (21:22)
[2020-09-13] MEDS: ATORVASTATIN 40 MG TABLET PO SCH (21:22)
[2020-09-13] MEDS: ENOXAPARIN SODIUM 40 MG/0.4 ML DISP.SYRIN SQ SCH (21:23)
[2020-09-13] MEDS: ACETAMINOPHEN 325 MG TABLET PO PRN (23:51)
--- NOTE | 2020-09-14 03:15 | NUR ---
Pt received resting in bed. AxO to self. VSS. Pt is in no acute distress, no s/s of pain noted. IV Left AC heplock flushed, patent intact. All due medications administered and tolerated well, crushed with pudding, aspiration precautions marinated. BS checked 88, did not administer lantus. BS checked @midnight 100, no coverage. No s/s of hypo/hyperglycemia noted. Grubbs draining and patent. Legs are contracted. Turned and repositioned pt Q2h. Wound on left buttock is noted. Redness on heals, offloading with pillows. Needs attended too. Encourage pt to reposition. Kept clean, dry and comfortable. Safety measures maintained. Will continue to monitor.
[2020-09-14 04:35] VITALS: BP 123/51
[2020-09-14] MEDS: BLOOD SUGAR DIAGNOSTIC 1 EACH STRIP VI SCH ×4 (06:39→23:44)
--- NOTE | 2020-09-14 07:30 | NUR ---
Patient received in bed with eyes closed, but easily arousable, alert and oriented to self only. No acute distress noted at this time. Left AC IV is patent with no redness or swelling at this time. Grubbs catheter in place draining clear yellow urine via gravity. Aspiration and fall precautions in place. Call light within easy reach. Will continue to monitor.
[2020-09-14 07:48] LABS: HEMATOCRIT 30.3 % (31.2-41.9); MEAN CORPUSCULAR HEMOGLOBIN 25.1 uug (24.7-32.8); MEAN CORPUSCULAR VOLUME 78.8 fL (75.5-95.3); PLATELET COUNT (AUTO) 428 K/uL (179-408)
[2020-09-14 07:53] LABS: CREATININE 0.9 mg/dL (0.6-1.3); MAGNESIUM 1.9 mg/dL (1.8-2.4); PHOSPHOROUS 3.1 mg/dL (2.5-4.9); POTASSIUM 4.4 mmol/L (3.5-5.1)
[2020-09-14] MEDS: ASPIRIN 81 MG TAB.CHEW PO SCH (08:25)
[2020-09-14] MEDS: METFORMIN HCL 500 MG TABLET PO SCH ×3 (08:25→17:41)
[2020-09-14] MEDS: METOPROLOL SUCCINATE XL 50 MG TAB.SR.24H PO SCH (08:33)
[2020-09-14] MEDS: AMLODIPINE 10 MG TABLET PO SCH (08:33)
[2020-09-14] MEDS: LOSARTAN POTASSIUM 50 MG TABLET PO SCH (08:33)
[2020-09-14] MEDS: SODIUM HYPOCHLORITE 0.125% (QUARTER STRENGTH) 473 ML BOTTLE TP SCH (08:35)
[2020-09-14] MEDS: CEFTRIAXONE 1 G in IV DEXTROSE 5% 50 ML IV SCH (10:48)
[2020-09-14] MEDS: INSULIN REGULAR, HUMAN 300 UNIT/3 ML VIAL SQ PRN ×3 (11:27→20:55)
[2020-09-14] MEDS: ACETAMINOPHEN 325 MG TABLET PO PRN (11:48)
[2020-09-14 11:56] VITALS: BP 115/44
--- NOTE | 2020-09-14 12:00 | NUR ---
Facial grimacing and moaning observed. Tylenol administered for pain as ordered.
[2020-09-14 15:11] VITALS: BP 106/44
[2020-09-14] MEDS: GLUCERNA SHAKE VANILLA 237 ML CAN PO SCH (17:58)
[2020-09-14 20:00] VITALS: BP 112/52
[2020-09-14] MEDS: ATORVASTATIN 40 MG TABLET PO SCH (20:24)
[2020-09-14] MEDS: ENOXAPARIN SODIUM 40 MG/0.4 ML DISP.SYRIN SQ SCH (20:26)
[2020-09-14] MEDS: INSULIN GLARGINE,HUM 300 UNITS/3 ML CARTRIDGE SQ SCH (20:52)
[2020-09-14] MEDS ORDERED: NITROFURANTOIN/NITROFURAN MAC 100 MG CAPSULE PO SCH (21:00)
[2020-09-14 22:50] VITALS: BP 112/52
[2020-09-15 04:00] VITALS: BP 53/52
[2020-09-15 04:40] VITALS: BP 126/43
[2020-09-15] MEDS: DEXTROSE 50% 50 ML DISP.SYRIN IV PRN ×3 (05:36→23:47)
[2020-09-15] MEDS: BLOOD SUGAR DIAGNOSTIC 1 EACH STRIP VI SCH ×4 (05:44→23:46)
[2020-09-15 07:35] LABS: HEMATOCRIT 30.2 % (31.2-41.9); MEAN CORPUSCULAR HEMOGLOBIN 25.5 uug (24.7-32.8); MEAN CORPUSCULAR VOLUME 79.7 fL (75.5-95.3); PLATELET COUNT (AUTO) 508 K/uL (179-408)
--- NOTE | 2020-09-15 08:00 | NUR ---
Pt contracted on position. put pillow in between legs. Heel floated. Left sacral dressing intact. Call light is within reach. PT has good appetite.
[2020-09-15 08:05] LABS: CREATININE 0.8 mg/dL (0.6-1.3); MAGNESIUM 1.9 mg/dL (1.8-2.4); PHOSPHOROUS 2.9 mg/dL (2.5-4.9); POTASSIUM 3.8 mmol/L (3.5-5.1)
[2020-09-15] MEDS: ASPIRIN 81 MG TAB.CHEW PO SCH (08:51)
[2020-09-15] MEDS: AMLODIPINE 10 MG TABLET PO SCH (08:54)
[2020-09-15] MEDS: GLUCERNA SHAKE VANILLA 237 ML CAN PO SCH ×3 (08:55→16:54)
[2020-09-15] MEDS: METOPROLOL SUCCINATE XL 50 MG TAB.SR.24H PO SCH (08:55)
[2020-09-15] MEDS: SODIUM HYPOCHLORITE 0.125% (QUARTER STRENGTH) 473 ML BOTTLE TP SCH (08:55)
[2020-09-15] MEDS: LOSARTAN POTASSIUM 50 MG TABLET PO SCH (08:55)
[2020-09-15] MEDS: METFORMIN HCL 500 MG TABLET PO SCH ×3 (08:56→16:52)
[2020-09-15 12:00] VITALS: BP 101/44
[2020-09-15] MEDS: CEFTRIAXONE 1 G in IV DEXTROSE 5% 50 ML IV SCH (12:25)
[2020-09-15] MEDS: INSULIN REGULAR, HUMAN 300 UNIT/3 ML VIAL SQ PRN ×3 (12:29→16:56)
[2020-09-15 15:51] VITALS: BP 130/57
--- NOTE | 2020-09-15 17:00 | NUR ---
Found pt chewing on id band. Applied new ID band on foot of the bed. Dressing change done as ordered. Wound had bad odor. Green sloughing noted with purulent drain noted. PT tolerated dressing change. Addendum: 09/15/20 at 1850 by TIMOTHY ACOSTA RN able to get ID band out of pt's mouth.
[2020-09-15 20:18] VITALS: BP 120/58
[2020-09-15] MEDS: ATORVASTATIN 40 MG TABLET PO SCH (20:39)
[2020-09-15] MEDS: ENOXAPARIN SODIUM 40 MG/0.4 ML DISP.SYRIN SQ SCH (20:42)
[2020-09-15] MEDS: INSULIN GLARGINE,HUM 300 UNITS/3 ML CARTRIDGE SQ SCH (20:43)
[2020-09-16 04:21] VITALS: BP_SYST 109; BP_SYST 95; BP_DIAS 60; BP_DIAS 61
[2020-09-16] MEDS: BLOOD SUGAR DIAGNOSTIC 1 EACH STRIP VI SCH ×2 (06:06→11:31)
[2020-09-16] MEDS: DEXTROSE 50% 50 ML DISP.SYRIN IV PRN (06:10)
[2020-09-16 06:34] LABS: HEMATOCRIT 27.7 % (31.2-41.9); MEAN CORPUSCULAR HEMOGLOBIN 25.4 uug (24.7-32.8); MEAN CORPUSCULAR VOLUME 79.1 fL (75.5-95.3); PLATELET COUNT (AUTO) 500 K/uL (179-408)
[2020-09-16 06:54] LABS: CREATININE 0.8 mg/dL (0.6-1.3); MAGNESIUM 1.7 mg/dL (1.8-2.4); PHOSPHOROUS 2.7 mg/dL (2.5-4.9); POTASSIUM 3.5 mmol/L (3.5-5.1)
--- NOTE | 2020-09-16 08:00 | NUR ---
Pt is in no acute distress. Call light is within reach. IV on right hand intact. Heel floated and f/u with central about the kci bed. Per central kci bed has been ordered.
[2020-09-16] MEDS: METFORMIN HCL 500 MG TABLET PO SCH ×3 (08:08→17:00)
[2020-09-16] MEDS: ASPIRIN 81 MG TAB.CHEW PO SCH (08:08)
[2020-09-16] MEDS: AMLODIPINE 10 MG TABLET PO SCH (08:12)
[2020-09-16] MEDS: METOPROLOL SUCCINATE XL 50 MG TAB.SR.24H PO SCH (08:13)
[2020-09-16] MEDS: SODIUM HYPOCHLORITE 0.125% (QUARTER STRENGTH) 473 ML BOTTLE TP SCH (08:13)
[2020-09-16] MEDS: GLUCERNA SHAKE VANILLA 237 ML CAN PO SCH ×3 (08:14→17:31)
[2020-09-16] MEDS: LOSARTAN POTASSIUM 50 MG TABLET PO SCH (08:14)
[2020-09-16] MEDS: INSULIN REGULAR, HUMAN 300 UNIT/3 ML VIAL SQ PRN ×2 (08:26→11:33)
[2020-09-16] MEDS: MAGNESIUM SULFATE/D5W 100 ML IV SCH ×2 (10:20→11:26)
[2020-09-16] MEDS: CEFTRIAXONE 1 G in IV DEXTROSE 5% 50 ML IV SCH (11:26)
[2020-09-16 11:33] VITALS: BP 120/52
[2020-09-16] MEDS ORDERED: CEFU500T66 PO (12:59)
[2020-09-16 15:47] VITALS: BP 114/45
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
--- NOTE | 2020-09-16 18:38 | NUR ---
Called Victor M Son. Discussed new medications. Pt has prior home health setting with his mom. Notified son that blood sugar patterns have been low at [place] and in AM within the last couple nights. Instruct son to check and monitor pts bs around [place] and early AM. Pt SON VICTOR M states I know what im doing faith been taking care of my mom for YEARs. Pt states that he knows s/s of low BS. Instructed SON to continue Medications as prescribed exactly on the the discharge paper. Pt SON Verbalize understanding. Home Health to fu pt at home. F/C remain with pt secondary to pt is incontinent and pt has a large wound which can be prone for infx from pt being incontinent. Pt is in no acute distress upon discharge.
== END 2020-09-16 19:00 | disposition home or self-care (01) | DRG 689 ==
LOC: ER 09:40 → TELE3 13:36 → MEDSURG3 23:16
PROVIDERS: ADMIT Nurse Practitioner Acute Care; ATTEND Nurse Practitioner Acute Care
DX: N39.0 Urinary tract infection, site not specified (principal); L89.324 Pressure ulcer of left buttock, stage 4; G93.41 Metabolic encephalopathy; E11.65 Type 2 diabetes mellitus with hyperglycemia; E11.42 Type 2 diabetes mellitus with diabetic polyneuropathy; D63.8 Anemia in other chronic diseases classified elsewhere; E78.5 Hyperlipidemia, unspecified; F03.90 Unspecified dementia, unspecified severity, without behavioral disturbance, psychotic disturbance, mood disturbance, and anxiety; I25.10 Atherosclerotic heart disease of native coronary artery without angina pectoris; D47.3 Essential (hemorrhagic) thrombocythemia; Z87.440 Personal history of urinary (tract) infections; R32 Unspecified urinary incontinence; N31.9 Neuromuscular dysfunction of bladder, unspecified; M54.30 Sciatica, unspecified side; Z90.49 Acquired absence of other specified parts of digestive tract; Z79.82 Long term (current) use of aspirin; Z20.822 Contact with and (suspected) exposure to COVID-19; E11.621 Type 2 diabetes mellitus with foot ulcer; L97.519 Non-pressure chronic ulcer of other part of right foot with unspecified severity; L97.529 Non-pressure chronic ulcer of other part of left foot with unspecified severity; Z79.84 Long term (current) use of oral hypoglycemic drugs; L90.5 Scar conditions and fibrosis of skin; B96.89 Other specified bacterial agents as the cause of diseases classified elsewhere
CPT/HCPCS: 36415; 51702; 70030-TC; 71045; 83605; 83735; 84100; 85025; 87040; 87070; 87086; 93005; A4217; A4663; G0378; J0696; J1650; J1815; J2270; J2405; J3475; J3490; J7050; J7060